=== PATIENT | female | born 1960 | race Caucasian/White ===

== ENCOUNTER → 2016-06-20 | Outpatient (CLI) | payer BC ==
[~2016-06-20] MED LIST: AMLO-110 PO; ATV5X PO; BSP/10 PO; CALCTAB7 PO; CEPH500C PO; CETITAB27 PO; CYAN500T PO; IMT50 PO; MELO15TA4 PO; MULT-506 PO; OXYC-57 PO; TRAM-10 PO; TRAZ-120 PO; VENL150C56 PO; VENL75CA73 PO
== END | disposition home or self-care (01) ==
LOC: C.PAPS 08:35
PROVIDERS: ATTEND Obstetrics & Gynecology
DX: Z01.411 Encounter for gynecological examination (general) (routine) with abnormal findings (principal); R87.616 Satisfactory cervical smear but lacking transformation zone

== ENCOUNTER 2016-10-23 20:33 | Emergency (ER) | payer BC ==
[~2016-10-23] VITALS: Ht 162.6 cm; Wt 65.8 kg
[~2016-10-23 20:33] MED LIST changes: -CEPH500C PO; -CYAN500T PO; -MELO15TA4 PO; -OXYC-57 PO; -TRAZ-120 PO; +TRAZ1TAB5 PO; -VENL75CA73 PO
[2016-10-23 20:38] VITALS: Ht 162.6 cm; Wt 65.8 kg
[2016-10-23] MEDS ORDERED: SODIUM CHLORIDE 0.9% 1000ML 1,000 ML IV STA (20:53)
--- NOTE | 2016-10-23 21:01 | EMERGENCY ROOM VISIT NOTE ---
History First contact with patient: 20:43 Chief Complaint: FLANK PAIN Stated Complaint: PAIN IN LEFT SIDE History of Present Illness The patient is a 56 year old female who presents to the Emergency Room with complaints of left flank pain. The patient had sudden onset of severe left flank pain around 5 PM. It was severe and associated with nausea. The patient states that the pain seemed to ease up. She proceeded to go to a restaurant. She states that before they even got their food the pain returned. The patient' s called an ambulance because she was having such severe pain. The patient was evaluated by EMS at their home but the transport ambulance would not be there for at least 15 minutes. He decided to bring her to the hospital. She has not had any fevers. She has not had any chest pain or trouble breathing. She does not have any loss of bowel or bladder control, saddle anesthesia, pain, numbness, tingling or weakness in the legs. She denies any history of kidney stone. She denies any dysuria, urgency, frequency or hematuria. The patient states she did take Azo when the pain first started she thought she could be developing a urinary tract infection. Review of Systems A 10 system review of systems was completed with positives and pertinent negatives listed in the HPI. Past Medical/Surgical History Medical Problems: (1) Anxiety (2) Depression (3) Migraine Family History Cancer Diabetes mellitus Heart disease Hypertension Social History Smoking Status: Never Smoker Alcohol Use: occasionally Marital Status: Housing Status: lives with family Current/Historical Medications Scheduled Amlodipine (Norvasc), 5 MG PO DAILY Calcium Carbonate-Vitamin D W/ (Caltrate 600 Plus), 1 TAB PO DAILY Cephalexin Monohydrate (Keflex), 500 MG PO QID Cetirizine/Pseudoephedrine (Zyrtec-D Er 5MG/120MG), 1 TAB PO Q12H Cyanocobalamin (Vitamin B-12), 500 MCG PO DAILY Meloxicam (Meloxicam), 15 MG PO DAILY Multivitamin (Multivitamin), 1 TAB PO DAILY Trazodone Hcl (Desyrel), 50 MG PO HS Venlafaxine Hcl (Effexor Extended Rel), 150 MG PO DAILY Venlafaxine Hcl (Venlafaxine Extended Rel), 75 MG PO DAILY Scheduled PRN Lorazepam (Lorazepam), 0.5 MG PO DAILY PRN for Anxiety Oxycodone/Acetaminophen 5MG/325MG (Percocet 5MG/325MG), 1-2 TABS PO Q6 PRN for Pain Sumatriptan Succinate (Sumatriptan Succinate), 50 MG PO UD PRN for Migraine Tramadol (Ultram), 50 MG PO UD PRN for Migraine Physical Exam Vital Signs Date Time Temp Pulse Resp B/P (MAP) Pulse Ox O2 Delivery O2 Flow Rate FiO2 10/23/16 21:56 86 20 153/90 100 Room Air 10/23/16 20:38 36.6 84 16 152/82 100 Room Air Physical Exam VITALS: Vitals are noted on the nurse's note and reviewed by myself. Vital signs stable. The patient is afebrile. GENERAL: This is 56-year-old female, in no acute distress, nondiaphoretic, well- developed well-nourished. SKIN: The skin was without rashes, erythema, edema, or bruising. There is no tenting of the skin. Capillary reflex less than 2 seconds. HEAD: Normocephalic atraumatic. EARS: The external ears are normal in appearance. EYES: Pupils equal round and reactive to light and accommodation. Conjunctivae without injection, sclerae without icterus. Extraocular movements intact. NOSE: Patent, turbinates without inflammation or discharge. MOUTH: Mucous membranes moist. Tonsils are not enlarged. Pharynx without erythema or exudate. Uvula midline. Airway patent. Tongue does not deviate. NECK: Supple without nuchal rigidity. No lymphadenopathy. No thyromegaly. Cervical spine is nontender. No JVD. HEART: Regular rate and rhythm without murmurs gallops or rubs. LUNGS: Clear to auscultation bilaterally without wheezes, rales or rhonchi. No retractions or accessory muscle use. ABDOMEN: Positive bowel sounds x 4. Soft, minimal left lower abdominal tenderness, without masses or organomegaly. There is no CVA tenderness. MUSCULOSKELETAL: No muscle atrophy, erythema, or edema noted. Full range of motion without joint tenderness in all extremities. Strength 5/5 throughout. NEURO: Patient was alert and oriented to person place and time. No focal neurological deficits. Medical Decision & Procedures ER Provider Diagnostic Interpretation: ABD/PELVIS WITHOUT FOR STONE CLINICAL HISTORY: 56 years-old Female presenting with left flank pain. TECHNIQUE: Multidetector CT of the abdomen and pelvis was performed without the use of intravenous contrast. IV contrast: None. A dose lowering technique was used consistent with the principles of ALARA (as low as reasonably achievable). COMPARISON: None. CT DOSE (mGy.cm): The estimated cumulative dose is 757.58 mGy.cm. FINDINGS: Access Tech topogram: Unremarkable. Lung bases: Minimal dependent opacities, likely atelectasis. Normal heart size. No pericardial or pleural effusion. Liver: Normal morphology. Normal density. Evaluation limited by exclusion of the right hepatic dome. Few subcentimeter hypodensities, incompletely characterized without intravenous contrast but possibly hepatic cysts or hamartomas. Biliary: No gross biliary ductal dilatation allowing for noncontrast technique. Normal gallbladder. Pancreas: Normal. Spleen: Normal. Adrenal glands: Normal. Kidneys and ureters: No renal calculi. No hydronephrosis. Minimal infiltration along the lateral aspect of the left proximal ureter (series 3 image 137). However, the ureters are nondilated. No urothelial thickening. No calculus visualized within the ureters. Gastrointestinal tract: Normal appendix. No bowel obstruction. Peritoneal cavity: Trace free fluid in the pelvis. Bladder: Normal. Pelvic organs: Uterus and ovaries normal. Dominant follicle in the right ovary, measuring 2.6 cm. Vasculature: Minimal atherosclerosis of the abdominal aorta, which is normal in caliber. Lymph nodes: No enlarged lymph nodes in the abdomen or pelvis. Abdominal wall: Normal. Musculoskeletal: Degenerative changes of the pubic symphysis. IMPRESSION: 1. Nonspecific periureteral stranding along the proximal left ureter. No visualized renal or ureteral calculus. No obstruction. 2. Apparent dominant follicle in the right ovary measuring 2.6 cm. This is most likely benign even in the early postmenopausal setting. If there is clinical concern, ultrasound could be obtained on a nonurgent basis. Laboratory Results 10/23/16 21:05 Red Blood Count 4.35, Mean Corpuscular Volume 90.1, Mean Corpuscular Hemoglobin 30.1, Mean Corpuscular Hemoglobin Concent 33.4, Mean Platelet Volume 8.9, Neutrophils (%) (Auto) 59.7, Lymphocytes (%) (Auto) 25.2, Monocytes (%) (Auto) 11.0, Eosinophils (%) (Auto) 3.4, Basophils (%) (Auto) 0.6, Neutrophils # (Auto ) 4.27, Lymphocytes # (Auto) 1.80, Monocytes # (Auto) 0.79, Eosinophils # (Auto ) 0.24, Basophils # (Auto) 0.04 10/23/16 21:05 Test 10/23/16 21:05 White Blood Count 7.15 K/uL (4.8-10.8) Red Blood Count 4.35 M/uL (4.2-5.4) Hemoglobin 13.1 g/dL (12.0-16.0) Hematocrit 39.2 % (37-47) Mean Corpuscular Volume 90.1 fL (80-100) Mean Corpuscular Hemoglobin 30.1 pg (25-34) Mean Corpuscular Hemoglobin Concent 33.4 g/dl (32-36) Platelet Count 266 K/uL (130-400) Mean Platelet Volume 8.9 fL (7.4-10.4) Neutrophils (%) (Auto) 59.7 % Lymphocytes (%) (Auto) 25.2 % Monocytes (%) (Auto) 11.0 % Eosinophils (%) (Auto) 3.4 % Basophils (%) (Auto) 0.6 % Neutrophils # (Auto) 4.27 K/uL (1.4-6.5) Lymphocytes # (Auto) 1.80 K/uL (1.2-3.4) Monocytes # (Auto) 0.79 K/uL (0.11-0.59) Eosinophils # (Auto) 0.24 K/uL (0-0.5) Basophils # (Auto) 0.04 K/uL (0-0.2) RDW Standard Deviation 41.2 fL (36.4-46.3) RDW Coefficient of Variation 12.5 % (11.5-14.5) Immature Granulocyte % (Auto) 0.1 % Immature Granulocyte # (Auto) 0.01 K/uL (0.00-0.02) Urine Color DK YELLOW Urine Appearance CLEAR (CLEAR) Urine pH 7.5 (4.5-7.5) Urine Specific [place] 1.011 (1.000-1.030) Urine Protein NEG (NEG) Urine Glucose (UA) NEG (NEG) Urine Ketones NEG (NEG) Urine Occult Blood 3+ (NEG) Urine Nitrite POS (NEG) Urine Bilirubin NEG (NEG) Urine Urobilinogen NEG (NEG) Urine Leukocyte Esterase NEG (NEG) Urine WBC (Auto) 0 /hpf (0-5) Urine RBC (Auto) 0-4 /hpf (0-4) Urine Hyaline Casts (Auto) 1-5 /lpf (0-5) Urine Epithelial Cells (Auto) 5-10 /lpf (0-5) Urine Bacteria (Auto) NEG (NEG) Anion Gap 6.0 mmol/L (3-11) Est Creatinine Clear Calc Drug Dose 60.6 ml/min Estimated GFR () 75.3 Estimated GFR (Non- 64.9 BUN/Creatinine Ratio 17.7 (10-20) Calcium Level 9.1 mg/dl (8.5-10.1) Total Bilirubin 0.4 mg/dl (0.2-1) Aspartate Amino Transf (AST/SGOT) 21 U/L (15-37) Alanine Aminotransferase (ALT/SGPT) 25 U/L (12-78) Alkaline Phosphatase 64 U/L (45-117) Total Creatine Kinase 135 U/L (26-192) Total Protein 7.3 gm/dl (6.4-8.2) Albumin 4.0 gm/dl (3.4-5.0) Globulin 3.3 gm/dl (2.5-4.0) Albumin/Globulin Ratio 1.2 (0.9-2) Lipase 213 U/L (73-393) Medications Administered Medications (Trade) Dose Ordered Sig/Lorena Route Start Time Stop Time Status Last Admin Dose Admin Sodium Chloride 1,000 ml @ 999 mls/hr Q1H1M STAT IV 10/23/16 20:53 10/23/16 21:53 DC 10/23/16 21:15 999 MLS/HR ED Course The patient was seen and examined. Previous visits were reviewed. The patient does not have a fever or leukocytosis. She is not anemic. She does not have any significant electrolyte abnormalities. Lipase is not elevated. Urinalysis reveals 3+ blood, positive nitrates and 5-10 epithelial cells. There is no elevation in the white blood cell count or red blood cell count. A culture will be sent. The patient was hydrated with normal saline. The patient presents to the emergency department with severe intermittent left flank pain that started suddenly approximately 5 hours ago. The patient has been completely pain free throughout her visit in the emergency department. She is nontoxic in appearance. CT scan of the abdomen and pelvis reveals some stranding around the left proximal ureter. This could potentially represent a urinary tract infection or possibly recently passed stone. There is also incidental note of right hepatic cyst versus hematoma and a dominant right ovarian follicle. She was advised that both of these findings. She should follow with her family doctor. The patient will be started on Keflex and given a prescription for Percocet. She should return to the emergency Department with any recurrence of pain that cannot be controlled at home, fevers or generalized worsening symptoms. The case was discussed with Dr. Mccarthy who agrees with the assessment and treatment plan. Medical Decision DIFFERENTIAL DIAGNOSIS: Hepatitis, cholecystitis, cholangitis, biliary colic, pancreatitis, pneumonia, subdiaphragmatic abscess, appendicitis, inguinal hernia , nephrolithiasis, inflammatory bowel disease, mesenteric adenitis, peptic ulcer disease, GERD, gastritis, pancreatitis, myocardial infarction, pericarditis, ruptured aortic aneurysm, appendicitis, gastroenteritis, bowel obstruction, splenic infarct, diverticulitis, mesenteric ischemia, metabolic, peritonitis, among others. [place] Drug Monitoring Program Search Results: patient reviewed within database, no issues identified Medication Reconcilliation Current Medication List: was personally reviewed by la Blood Pressure Screening Patient's blood pressure: Elevated blood pressure Blood pressure disposition: Elevated BP felt to be situational Impression Primary Impression: Left flank pain Additional Impression: Urinary tract infection Departure Information Dispostion Home / Self-Care Condition GOOD Prescriptions Oxycodone/Acetaminophen 5MG/325MG (PERCOCET 5MG/325MG) Tab 1-2 TABS PO Q6 Y for Pain, #24 TAB For Initial Treatment Prov: Muriel Drew PA-C 10/23/16 Cephalexin Monohydrate (Keflex) 500 Mg Cap 500 MG PO QID for 7 Days, #28 CAP Prov: Muriel rDew PA-C 10/23/16 Referrals No Doctor, Assigned (PCP) Tony Vega MD, Urology Patient Instructions Kidney Stones, My [facility] [employer] Additional Instructions Motrin 600 mg every 6-8 hours for moderate pain Percocet 1-2 tablet every 4-6 hours as needed for worse pain. No driving or alcohol use with Percocet and do not take with Tylenol. Keflex as prescribed, until finished to treat for potential urine infection Return with fevers, pain that cannot be controlled at home, worsening or changing symptoms Otherwise, contact her family doctor or urology to schedule a follow-up appointment for further evaluation and management Problem Qualifiers
[2016-10-23] MEDS ORDERED: VENL75CA73 PO (21:10)
[2016-10-23] MEDS ORDERED: MELO15TA4 PO (21:10)
[2016-10-23] MEDS ORDERED: CYAN500T PO (21:11)
[2016-10-23 21:17] LABS: BASO % 0.6 %; BASO ABS # 0.04 K/uL (0-0.2); COMPLETE YES; EOS % 3.4 %; HEMATOCRIT 39.2 % (37-47); IG% 0.1 %; LYMPH % 25.2 %; MEAN CELL VOLUME 90.1 fL (80-100); MEAN CORPUSCULAR HEMOGLOBIN 30.1 pg (25-34); MEAN CORPUSCULAR HGB CONC 33.4 g/dl (32-36); MEAN PLATELET VOLUME 8.9 fL (7.4-10.4); NEUT % 59.7 %; PLATELET COUNT 266 K/uL (130-400); RED BLOOD COUNT 4.35 M/uL (4.2-5.4); WHITE BLOOD COUNT 7.15 K/uL (4.8-10.8)
[2016-10-23 21:27] LABS: URINE APPEARANCE CLEAR (CLEAR); URINE BILIRUBIN NEG (NEG); URINE COLOR DK YELLOW; URINE NITRITE POS (NEG); URINE PH 7.5 (4.5-7.5); URINE SPECIFIC GRAVITY 1.011 (1.000-1.030); UROBILINOGEN NEG (NEG); ZZUR CULT IF INDIC CLEAN CATCH NO
[2016-10-23 21:36] LABS: BUN/CREATININE RATIO 17.7 (10-20); CALCIUM 9.1 mg/dl (8.5-10.1); CREATININE 0.98 mg/dl (0.60-1.20); POTASSIUM 4.1 mmol/L (3.5-5.1)
[2016-10-23 21:37] LABS: MANUAL MICROSCOPIC REQUIRED? NO; REVIEW REQ? NO
[2016-10-23 21:39] LABS: ALB/GLOB RATIO 1.2 (0.9-2)
--- NOTE | 2016-10-23 21:40 | DIAGNOSTIC IMAGING REPORT ---
ABD/PELVIS WITHOUT FOR STONE CLINICAL HISTORY: 56 years-old Female presenting with left flank pain. TECHNIQUE: Multidetector CT of the abdomen and pelvis was performed without the use of intravenous contrast. IV contrast: None. A dose lowering technique was used consistent with the principles of ALARA (as low as reasonably achievable). COMPARISON: None. CT DOSE (mGy.cm): The estimated cumulative dose is 757.58 mGy.cm. FINDINGS: Pharmacy Operations Coordinator topogram: Unremarkable. Lung bases: Minimal dependent opacities, likely atelectasis. Normal heart size. No pericardial or pleural effusion. Liver: Normal morphology. Normal density. Evaluation limited by exclusion of the right hepatic dome. Few subcentimeter hypodensities, incompletely characterized without intravenous contrast but possibly hepatic cysts or hamartomas. Biliary: No gross biliary ductal dilatation allowing for noncontrast technique. Normal gallbladder. Pancreas: Normal. Spleen: Normal. Adrenal glands: Normal. Kidneys and ureters: No renal calculi. No hydronephrosis. Minimal infiltration along the lateral aspect of the left proximal ureter (series 3 image 137). However, the ureters are nondilated. No urothelial thickening. No calculus visualized within the ureters. Gastrointestinal tract: Normal appendix. No bowel obstruction. Peritoneal cavity: Trace free fluid in the pelvis. Bladder: Normal. Pelvic organs: Uterus and ovaries normal. Dominant follicle in the right ovary, measuring 2.6 cm. Vasculature: Minimal atherosclerosis of the abdominal aorta, which is normal in caliber. Lymph nodes: No enlarged lymph nodes in the abdomen or pelvis. Abdominal wall: Normal. Musculoskeletal: Degenerative changes of the pubic symphysis. IMPRESSION: 1. Nonspecific periureteral stranding along the proximal left ureter. No visualized renal or ureteral calculus. No obstruction. 2. Apparent dominant follicle in the right ovary measuring 2.6 cm. This is most likely benign even in the early postmenopausal setting. If there is clinical concern, ultrasound could be obtained on a nonurgent basis. Electronically signed by: Sushil Leach M.D. 10/23/2016 9:39 PM Dictated Date/Time: 10/23/2016 9:31 PM
[2016-10-23] MEDS ORDERED: OXYC-57 PO (22:01)
[2016-10-23] MEDS ORDERED: CEPH500C PO (22:01)
[2016-10-23] MEDS ORDERED: PERCOCET HOME PACK PO ONE (22:15)
[2016-10-23] MEDS ORDERED: CEPHALEXIN 500MG HOME PACK 1 EA BTL PO ONE (22:15)
[2016-10-23 22:47] VITALS: BP 128/88; PULSE 86; TEMP 36.6; O2SAT 100
== END 2016-10-23 22:49 | disposition home or self-care (01) ==
LOC: C.EDB 20:34
DX: N39.0 Urinary tract infection, site not specified (principal); F41.9 Anxiety disorder, unspecified; F32.9 Major depressive disorder, single episode, unspecified; Z80.9 Family history of malignant neoplasm, unspecified; Z83.3 Family history of diabetes mellitus; Z82.49 Family history of ischemic heart disease and other diseases of the circulatory system; Z79.899 Other long term (current) drug therapy

== ENCOUNTER 2017-05-01 18:54 | Observation (INO) | payer BC ==
[~2017-05-01] VITALS: Ht 162.6 cm; Wt 60.3 kg
[~2017-05-01 18:54] MED LIST changes: -BSP/10 PO; +CYAN500T PO; +MELO15TA4 PO; +TRAZ-120 PO; -TRAZ1TAB5 PO; +VENL75CA73 PO
[2017-05-01] MEDS ORDERED: ASPIRIN 81 MG CHEW PO STA (19:21)
[2017-05-01] MEDS ORDERED: NITROGLYCERIN 0.4 MG SL PER TAB CHARGE SL PRN ×2 (19:30→21:15)
[2017-05-01 19:42] LABS: BASO % 0.7 %; BASO ABS # 0.04 K/uL (0-0.2); EOS % 3.7 %; EOS ABS # 0.21 K/uL (0-0.5); HEMATOCRIT 38.1 % (37-47); HEMOGLOBIN 13.1 g/dL (12.0-16.0); IG# 0.01 K/uL (0.00-0.02); LYMPH % 40.2 %; LYMPH ABS # 2.27 K/uL (1.2-3.4); MEAN CELL VOLUME 89.9 fL (80-100); MEAN CORPUSCULAR HEMOGLOBIN 30.9 pg (25-34); MEAN CORPUSCULAR HGB CONC 34.4 g/dl (32-36); MEAN PLATELET VOLUME 9.1 fL (7.4-10.4); MONO % 11.2 %; MONO ABS # 0.63 K/uL (0.11-0.59); NEUT ABS # 2.48 K/uL (1.4-6.5); PLATELET COUNT 251 K/uL (130-400); RED CELL DISTRIBUTION WIDTH CV 12.6 % (11.5-14.5); RED CELL DISTRIBUTION WIDTH SD 40.7 fL (36.4-46.3); WHITE BLOOD COUNT 5.64 K/uL (4.8-10.8)
--- NOTE | 2017-05-01 19:50 | DIAGNOSTIC IMAGING REPORT ---
CHEST ONE VIEW PORTABLE HISTORY: Atypical Chest Pain COMPARISON: Chest 07/17/2015. FINDINGS: The lungs are clear. Cardiac silhouette is normal in size. No pleural effusions. No pneumothorax. IMPRESSION: No acute process. Electronically signed by: Shaan Jha M.D. 05/01/2017 7:49 PM Dictated Date/Time: 05/01/2017 7:48 PM
[2017-05-01] MEDS ORDERED: MoRPHine SULFATE 4 MG/ML 1 ML CARP\\VIAL IV STA (19:57)
[2017-05-01] MEDS ORDERED: ONDANSETRON INJ 2 MG/ML 2 ML VIAL IV STA (19:57)
[2017-05-01 20:02] LABS: BLOOD UREA NITROGEN 22 mg/dl (7-18); CALCIUM 9.1 mg/dl (8.5-10.1); CARBON DIOXIDE 25 mmol/L (21-32); CREATININE 0.74 mg/dl (0.60-1.20); GLUCOSE 91 mg/dl (70-99); POTASSIUM 3.3 mmol/L (3.5-5.1); SODIUM 139 mmol/L (136-145)
[2017-05-01 20:07] LABS: CKMB 2.5 ng/ml (0.5-3.6)
[2017-05-01] MEDS ORDERED: IV FLUIDS COMPLETED PRN (21:15)
[2017-05-01] MEDS ORDERED: MoRPHine SULFATE 2 MG/ML CARP IV PRN (21:15)
[2017-05-01] MEDS ORDERED: POLYETHYLENE (MIRALAX) 17 GM PACK PO PRN (21:15)
[2017-05-01] MEDS ORDERED: ACETAMINOPHEN 325 MG TAB PO PRN (21:15)
[2017-05-01] MEDS ORDERED: ONDANSETRON INJ 2 MG/ML 2 ML VIAL IV PRN (21:15)
[2017-05-01] MEDS ORDERED: ZNTT/150 PO (21:16)
[2017-05-01] MEDS ORDERED: AMLO-114 PO (21:16)
[2017-05-01] MEDS ORDERED: BUSP5TAB59 PO (21:16)
[2017-05-01] MEDS ORDERED: CYAN1CAP3 PO (21:16)
[2017-05-01] MEDS ORDERED: VTMD1000 PO (21:16)
--- NOTE | 2017-05-01 21:28 | History and Physical ---
History & Physical Date & Time of Service: May 01, 2017 at 21:17 Chief Complaint: Burning In Chest, Elevated Bp, Headache Primary Care Physician: Donato Abraham M.D. 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 She reports this pain has been not triggered by anything in particular, for instance she will note it in the car while driving home from work. However , she did say the pain could get worse with exertion. Nitro was given in the ER and didn't help her much ith respect to pain but the morphine did help somewhat. ASA was also given. She has no known h/o heart disease and has a family history of her mother and multiple aunts needing a pacemaker but no known early heart disease. She has noted her BP being very elevated >200/100 in the last few weeks and has even gone up on her amlodipine dose from 5mg to 10mg without much improvement. She states that taking 1-2 tabs of her Ativan is really what will help her BP. ROS does reveal some new ice pick headaches that are not similar to her migraines in the past along with some facial flushing, episodes of diaphoresis and some intermittent lightheadedness. She doesn't attribute the symptoms with her pain and denies any SOB, abdominal pain , diarrhea, or other symptoms. She reports being diagnosed with HTN 2-3 years ago and has been well maintained on monotherapy up until a few weeks ago. She does report that her went through a heart attack recently and this was stressful for her. He is present and recovering well. Past Medical/Surgical History Medical Problems: (1) Anxiety Status: Chronic (2) Depression Status: Chronic (3) Migraine Status: Chronic Family History Cancer Diabetes mellitus Hypertension Social History Smoking Status: Never Smoker Smokeless Tobacco Use: No Alcohol Use: socially Drug Use: none Marital Status: Housing status: lives with significant other Occupational Status: employed Immunizations History of Influenza Vaccine: Unknown History of Tetanus Vaccine?: Yes Tetanus Immunization Date: Nov 05, 2016 History of Pneumococcal: Unknown History of Hepatitis B Vaccine: Unknown Multi-Drug Resistant Organisms History of MDRO: No Allergies Coded Allergies: Sulfa Drugs (Verified Allergy, Severe, HIVES, 05/01/17) Home Medications Scheduled Amlodipine (Norvasc), 10 MG PO DAILY Buspirone Hcl (Buspirone Hcl), 20 MG PO DAILY Cholecalciferol (Vitamin D3), 1,000 UNITS PO DAILY Cyanocobalamin (B-12), 1,000 MCG PO QD Meloxicam (Meloxicam), 15 MG PO DAILY Ranitidine (Zantac), 150 MG PO DAILY Trazodone Hcl (Desyrel), 50 MG PO HS Venlafaxine Hcl (Venlafaxine Extended Rel), 75 MG PO DAILY Scheduled PRN Lorazepam (Lorazepam), 0.5 MG PO TID PRN for Anxiety Sumatriptan Succinate (Sumatriptan Succinate), 50 MG PO UD PRN for Migraine Tramadol (Ultram), 50 MG PO UD PRN for Migraine Review of Systems At least ten systems were reviewed and negative except as indicated in HPI above. Physical Exam Vital Signs Date Time Temp Pulse Resp B/P (MAP) Pulse Ox O2 Delivery O2 Flow Rate FiO2 05/01/17 20:00 79 18 138/85 99 Room Air 05/01/17 19:45 127/87 05/01/17 19:42 148/90 05/01/17 19:05 36.5 87 18 147/89 99 Room Air General Appearance: WD/WN, no apparent distress Head: normocephalic, atraumatic Eyes: normal inspection, PERRL, sclerae normal ENT: normal ENT inspection, hearing grossly normal, pharynx normal, + pertinent finding (mucous membranes are moist) Neck: supple, no adenopathy, no JVD, trachea midline Respiratory/Chest: lungs clear, normal breath sounds, no respiratory distress, no accessory muscle use Cardiovascular: regular rate, rhythm, no edema, no gallop, no murmur, normal peripheral pulses Abdomen/GI: normal bowel sounds, non tender, soft Back: normal inspection Extremities/Musculoskelatal: normal inspection Neurologic/Psych: 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, no motor/sensory deficits, alert, normal mood/affect, oriented x 3 Skin: normal color, warm/dry Diagnostics Laboratory Results 05/01/17 19:30 Red Blood Count 4.24, Mean Corpuscular Volume 89.9, Mean Corpuscular Hemoglobin 30.9, Mean Corpuscular Hemoglobin Concent 34.4, Mean Platelet Volume 9.1, Neutrophils (%) (Auto) 44.0, Lymphocytes (%) (Auto) 40.2, Monocytes (%) (Auto) 11.2, Eosinophils (%) (Auto) 3.7, Basophils (%) (Auto) 0.7, Neutrophils # (Auto ) 2.48, Lymphocytes # (Auto) 2.27, Monocytes # (Auto) 0.63, Eosinophils # (Auto ) 0.21, Basophils # (Auto) 0.04 05/01/17 19:30 Test 05/01/17 19:30 White Blood Count 5.64 K/uL (4.8-10.8) Red Blood Count 4.24 M/uL (4.2-5.4) Hemoglobin 13.1 g/dL (12.0-16.0) Hematocrit 38.1 % (37-47) Mean Corpuscular Volume 89.9 fL (80-100) Mean Corpuscular Hemoglobin 30.9 pg (25-34) Mean Corpuscular Hemoglobin Concent 34.4 g/dl (32-36) Platelet Count 251 K/uL (130-400) Mean Platelet Volume 9.1 fL (7.4-10.4) Neutrophils (%) (Auto) 44.0 % Lymphocytes (%) (Auto) 40.2 % Monocytes (%) (Auto) 11.2 % Eosinophils (%) (Auto) 3.7 % Basophils (%) (Auto) 0.7 % Neutrophils # (Auto) 2.48 K/uL (1.4-6.5) Lymphocytes # (Auto) 2.27 K/uL (1.2-3.4) Monocytes # (Auto) 0.63 K/uL (0.11-0.59) Eosinophils # (Auto) 0.21 K/uL (0-0.5) Basophils # (Auto) 0.04 K/uL (0-0.2) RDW Standard Deviation 40.7 fL (36.4-46.3) RDW Coefficient of Variation 12.6 % (11.5-14.5) Immature Granulocyte % (Auto) 0.2 % Immature Granulocyte # (Auto) 0.01 K/uL (0.00-0.02) Anion Gap 8.0 mmol/L (3-11) Est Creatinine Clear Calc Drug Dose 73.3 ml/min Estimated GFR () 105.0 Estimated GFR (Non- 90.6 BUN/Creatinine Ratio 30.3 (10-20) Calcium Level 9.1 mg/dl (8.5-10.1) Total Creatine Kinase 130 U/L (26-192) Creatine Kinase MB 2.5 ng/ml (0.5-3.6) Creatine Kinase MB Ratio 1.9 (0-3.0) Troponin I < 0.015 ng/ml (0-0.045) Results Past 24 Hours Test 05/01/17 19:30 Range/Units White Blood Count 5.64 4.8-10.8 K/uL Red Blood Count 4.24 4.2-5.4 M/uL Hemoglobin 13.1 12.0-16.0 g/dL Hematocrit 38.1 37-47 % Mean Corpuscular Volume 89.9 80-100 fL Mean Corpuscular Hemoglobin 30.9 25-34 pg Mean Corpuscular Hemoglobin Concent 34.4 32-36 g/dl Platelet Count 251 130-400 K/uL Mean Platelet Volume 9.1 7.4-10.4 fL Neutrophils (%) (Auto) 44.0 % Lymphocytes (%) (Auto) 40.2 % Monocytes (%) (Auto) 11.2 % Eosinophils (%) (Auto) 3.7 % Basophils (%) (Auto) 0.7 % Neutrophils # (Auto) 2.48 1.4-6.5 K/uL Lymphocytes # (Auto) 2.27 1.2-3.4 K/uL Monocytes # (Auto) 0.63 0.11-0.59 K/uL Eosinophils # (Auto) 0.21 0-0.5 K/uL Basophils # (Auto) 0.04 0-0.2 K/uL RDW Standard Deviation 40.7 36.4-46.3 fL RDW Coefficient of Variation 12.6 11.5-14.5 % Immature Granulocyte % (Auto) 0.2 % Immature Granulocyte # (Auto) 0.01 0.00-0.02 K/uL Sodium Level 139 136-145 mmol/L Potassium Level 3.3 3.5-5.1 mmol/L Chloride Level 105 98-107 mmol/L Carbon Dioxide Level 25 21-32 mmol/L Anion Gap 8.0 3-11 mmol/L Blood Urea Nitrogen 22 7-18 mg/dl Creatinine 0.74 0.60-1.20 mg/dl Est Creatinine Clear Calc Drug Dose 73.3 ml/min Estimated GFR () 105.0 Estimated GFR (Non- 90.6 BUN/Creatinine Ratio 30.3 10-20 Random Glucose 91 70-99 mg/dl Calcium Level 9.1 8.5-10.1 mg/dl Total Creatine Kinase 130 26-192 U/L Creatine Kinase MB 2.5 0.5-3.6 ng/ml Creatine Kinase MB Ratio 1.9 0-3.0 Troponin I < 0.015 0-0.045 ng/ml Diagnostic Radiology CHEST ONE VIEW PORTABLE HISTORY: Atypical Chest Pain COMPARISON: Chest 07/17/2015. FINDINGS: The lungs are clear. Cardiac silhouette is normal in size. No pleural effusions. No pneumothorax. IMPRESSION: No acute process. Normal EKG Impression Assessment and Plan 57 yo F with HTN that has been more uncontrolled recently presents with persistent, intermittent chest pain. 1. Chest pain-intermittent and appears to be corresponding to her elevated BP. Rule out ACS with serial trop and telemetry monitoring. EKG on admission was nonischemic. Pain was resolved with morphine. ASA and Lipitor given. Defer to Cardiology for risk stratification for CAD. 2. HTN-elevated in the setting of hypokalemia and now flushing and episodes of diaphoresis. Currently BP is controlled after nitro in the ER, but will monitor closely. It is worth a quick workup for secondary causes of HTN to include JOSÉ, primary aldosteronism so will order renal artery duplex and PAC/ PRA ratio. These are reference labs and will need to be followed up by PCP as outpatient. With symptoms of flushing and episodes of diaphoresis would also consider 24 hour urine collection for pheo and carcinoid testing. This can be done as outpatient. Of note, she has been post-menopausal now for 5-6 years and these are not hot flashes. 3. Flushing and diaphoresis-workup as above. 4. Hypokalemia-replace, screen for primary aldosteronism above. 5. Migraines-controlled. Takes sumitriptan PRN but will hold in setting of poss ACS. DVT proph-Lovenox Full Code Dispo-telemetry w cardio consult in am. NPO p MN for poss stress test. DO [facility] Level [facility] Care Telemetry Resuscitation Status FULL RESUSCITATION VTE Prophylaxis VTE Risk Assessment Done? Y/N: Yes Risk Level: Moderate Given or contraindicated: Enoxaparin (Lovenox)SQ
[2017-05-01] MEDS ORDERED: LORAZEPAM 0.5 MG TAB PO PRN (21:30)
[2017-05-01] MEDS ORDERED: TRAZODONE HCL 50 MG TAB PO SCH (21:30)
[2017-05-01] MEDS ORDERED: TRAMADOL HCL 50 MG TAB PO PRN (21:30)
[2017-05-01] MEDS ORDERED: ATORVASTATIN 40 MG TAB PO STA (21:43)
[2017-05-01] MEDS ORDERED: POTASSIUM CHLORIDE 20 MEQ TABCR PO STA (21:43)
[2017-05-01 22:17] VITALS: BP 163/96; PULSE 84; TEMP 36.5; Ht 162.6 cm; Wt 60.3 kg
[2017-05-01 23:05] VITALS: BP 100/64; PULSE 84; TEMP 36.4; O2SAT 97
--- NOTE | 2017-05-02 00:18 | EMERGENCY ROOM VISIT NOTE ---
History Report prepared by Eron: Gene Jacobs Under the Supervision of: Dr. Frandy Mckinney D.O. First contact with patient: 19:09 Chief Complaint: HYPERTENSION Stated Complaint: BURNING IN CHEST, ELEVATED BP, HEADACHE History of Present Illness The patient is a 57 year old female who presents to the Emergency Room with complaints of off and on chest pain for the past two weeks, and she describes the pain as a burning. She states that she currently has the pain, and it started around 3 hours ago. She additionally states that her blood pressure has been high in the 200/100s. The patient notes that the chest pain is worsened with exertion, though it is not relieved with anything including resting, eating , and laying flat. She states that she has been having right arm burning and some right jaw pain. She has a history of hypertension, though she is not on medications, and she is currently a smoker. She denies any history of heart disease or aorta problems, though she has a family history of heart disease. Pt denies headache, change in vision, fevers, shortness of breath, nausea, vomiting , diarrhea, pain with urination, and melena. Source of History: patient Onset: two weeks ago Position: chest Quality: burning Timing: other (on and off) Modifying Factors (Worsening): exertion Associated Symptoms: No headache, No SOB Note: Associated symptoms: right arm pain, jaw pain, and hypertension Review of Systems See HPI for pertinent positives & negatives. A total of 10 systems reviewed and were otherwise negative. Past Medical & Surgical Medical Problems: (1) Anxiety (2) Depression (3) Migraine Family History Cancer Diabetes mellitus Heart disease Hypertension Social History Smoking Status: Never Smoker Alcohol Use: occasionally Marital Status: Housing Status: lives with family Current/Historical Medications Scheduled Amlodipine (Norvasc), 10 MG PO DAILY Buspirone Hcl (Buspirone Hcl), 20 MG PO DAILY Cholecalciferol (Vitamin D3), 1,000 UNITS PO DAILY Cyanocobalamin (B-12), 1,000 MCG PO QD Meloxicam (Meloxicam), 15 MG PO DAILY Ranitidine (Zantac), 150 MG PO DAILY Trazodone Hcl (Desyrel), 50 MG PO HS Venlafaxine Hcl (Venlafaxine Extended Rel), 75 MG PO DAILY Scheduled PRN Lorazepam (Lorazepam), 0.5 MG PO TID PRN for Anxiety Sumatriptan Succinate (Sumatriptan Succinate), 50 MG PO UD PRN for Migraine Tramadol (Ultram), 50 MG PO UD PRN for Migraine Allergies Coded Allergies: Sulfa Drugs (Verified Allergy, Severe, HIVES, 05/01/17) Physical Exam Vital Signs Date Time Temp Pulse Resp B/P (MAP) Pulse Ox O2 Delivery O2 Flow Rate FiO2 05/01/17 20:00 79 18 138/85 99 Room Air 05/01/17 19:45 127/87 05/01/17 19:42 148/90 05/01/17 19:05 36.5 87 18 147/89 99 Room Air Physical Exam GENERAL: Sitting up in bed, alert, well appearing, well nourished, no distress, non-toxic EYE EXAM: normal conjunctiva. OROPHARYNX: no exudate, no erythema, lips, buccal mucosa, and tongue normal and mucous membranes are moist NECK: supple, no nuchal rigidity, no adenopathy, non-tender LUNGS: Clear to auscultation. Normal chest wall mechanics HEART: no murmurs, S1 normal and S2 normal ABDOMEN: abdomen soft, non-tender, normo-active bowel sounds, no masses, no rebound or guarding. BACK: Back is symmetrical on inspection and there is no deformity, no midline tenderness, no CVA tenderness. SKIN: no rashes and no bruising UPPER EXTREMITIES: upper extremities are grossly normal. LOWER EXTREMITIES: Calves are equal bilaterally. No pitting edema. NEURO EXAM: Normal sensorium, cranial nerves II-XII grossly intact, normal speech, no gross weakness of arms, no gross weakness of legs. Medical Decision & Procedures ER Provider Diagnostic Interpretation: Radiology results as stated below per my review and the radiologist's interpretation: CHEST ONE VIEW PORTABLE HISTORY: Atypical Chest Pain COMPARISON: Chest 07/17/2015. FINDINGS: The lungs are clear. Cardiac silhouette is normal in size. No pleural effusions. No pneumothorax. IMPRESSION: No acute process. Electronically signed by: Shaan Jha M.D. 05/01/2017 7:49 PM Dictated Date/Time: 05/01/2017 7:48 PM Laboratory Results 05/01/17 19:30 Red Blood Count 4.24, Mean Corpuscular Volume 89.9, Mean Corpuscular Hemoglobin 30.9, Mean Corpuscular Hemoglobin Concent 34.4, Mean Platelet Volume 9.1, Neutrophils (%) (Auto) 44.0, Lymphocytes (%) (Auto) 40.2, Monocytes (%) (Auto) 11.2, Eosinophils (%) (Auto) 3.7, Basophils (%) (Auto) 0.7, Neutrophils # (Auto ) 2.48, Lymphocytes # (Auto) 2.27, Monocytes # (Auto) 0.63, Eosinophils # (Auto ) 0.21, Basophils # (Auto) 0.04 05/01/17 19:30 Test 05/01/17 19:30 White Blood Count 5.64 K/uL (4.8-10.8) Red Blood Count 4.24 M/uL (4.2-5.4) Hemoglobin 13.1 g/dL (12.0-16.0) Hematocrit 38.1 % (37-47) Mean Corpuscular Volume 89.9 fL (80-100) Mean Corpuscular Hemoglobin 30.9 pg (25-34) Mean Corpuscular Hemoglobin Concent 34.4 g/dl (32-36) Platelet Count 251 K/uL (130-400) Mean Platelet Volume 9.1 fL (7.4-10.4) Neutrophils (%) (Auto) 44.0 % Lymphocytes (%) (Auto) 40.2 % Monocytes (%) (Auto) 11.2 % Eosinophils (%) (Auto) 3.7 % Basophils (%) (Auto) 0.7 % Neutrophils # (Auto) 2.48 K/uL (1.4-6.5) Lymphocytes # (Auto) 2.27 K/uL (1.2-3.4) Monocytes # (Auto) 0.63 K/uL (0.11-0.59) Eosinophils # (Auto) 0.21 K/uL (0-0.5) Basophils # (Auto) 0.04 K/uL (0-0.2) RDW Standard Deviation 40.7 fL (36.4-46.3) RDW Coefficient of Variation 12.6 % (11.5-14.5) Immature Granulocyte % (Auto) 0.2 % Immature Granulocyte # (Auto) 0.01 K/uL (0.00-0.02) Prothrombin Time 10.0 SECONDS (9.0-12.0) Prothromb Time International Ratio 1.0 (0.9-1.1) Anion Gap 8.0 mmol/L (3-11) Est Creatinine Clear Calc Drug Dose 73.3 ml/min Estimated GFR () 105.0 Estimated GFR (Non- 90.6 BUN/Creatinine Ratio 30.3 (10-20) Calcium Level 9.1 mg/dl (8.5-10.1) Total Creatine Kinase 130 U/L (26-192) Creatine Kinase MB 2.5 ng/ml (0.5-3.6) Creatine Kinase MB Ratio 1.9 (0-3.0) Troponin I < 0.015 ng/ml (0-0.045) Laboratory results per my review. Medications Administered Medications (Trade) Dose Ordered Sig/Lorena Route Start Time Stop Time Status Last Admin Dose Admin Aspirin (Aspirin Chew) 324 mg NOW STAT PO 05/01/17 19:21 05/01/17 19:22 DC 05/01/17 19:41 324 MG Nitroglycerin (Nitrostat Tab) 0.4 mg Q5M PRN SL 05/01/17 19:30 05/01/17 21:48 DC 05/01/17 19:41 0.4 MG Morphine Sulfate (MoRPHine SULFATE INJ) 4 mg NOW STAT IV 05/01/17 19:57 05/01/17 19:59 DC 05/01/17 20:05 4 MG Ondansetron HCl (Zofran Inj) 4 mg NOW STAT IV 05/01/17 19:57 05/01/17 19:59 DC 05/01/17 20:05 4 MG ECG Indication: chest pain Rate (beats per minute): 79 Rhythm: sinus rhythm Findings: no ectopy, other (Normal axis and normal intervals) Change: The patient's EKG interpreted by me. ED Course ED COURSE: Vital signs were reviewed and showed situational hypertension The patients medical record was reviewed The above diagnostic studies were performed and reviewed. ED treatments and interventions as stated above. 1908: The patient was evaluated in room C4. A complete history and physical examination was performed. 1920: Aspirin 324mg PO 1929: Nitroglycerin 0.4mg SL 1956: Zofran 4mg IV, Morphine Sulfate 4mg IV 2009: Upon reevaluation, the patient is feeling a little better. I discussed my findings with the patient and she understands and agrees with the treatment plan. Based on the patients age, coexisting illnesses, exam and lab findings the decision to treat as an inpatient was made. The patient remained stable while under my care. The patient will be evaluated for further management. 2019: I reviewed the patient's case with Dr. Zack Summers. She will evaluate the patient for further management. Medical Decision Differential diagnoses includes but is not limited to acute coronary syndrome, myocardial infarction, pericarditis, pulmonary embolus, aortic dissection, pneumonia, pneumothorax, musculoskeletal, shingles, esophageal. Patient is a 57-year-old female who presents to ER for chest pain which she describes on left side her chest. Associated with the chest pain is right arm and jaw pain. History of hypertension and a family history of [place]. Chest pain has been coming going and she thinks it is worse with exertion. Patient was given nitroglycerin, aspirin and morphine. She had resolution of her symptoms. EKG unremarkable. CBC along with troponin were negative. Potassium was slightly low. Chest x-ray unremarkable. Patient was updated bedside. She is admitted to internal medicine for observation for cardiac rule out. Medication Reconcilliation Current Medication List: was personally reviewed by me Blood Pressure Screening Patient's blood pressure: Elevated blood pressure Blood pressure disposition: Elevated BP felt to be situational Consults Time Called: 2018 Consulting Physician: Dr. Zack Summers Returned Call: 2019 I reviewed the patient's case with Dr. Zack Summers. She will evaluate the patient for further management. Impression Primary Impression: Precordial chest pain Additional Impression: Hypokalemia Scribe Attestation The scribe's documentation has been prepared under my direction and personally reviewed by me in its entirety. I confirm that the note above accurately reflects all work, treatment, procedures, and medical decision making performed by me. Departure Information Dispostion Being Evaluated By Hospitalist Referrals Donato Abraham M.D. (PCP) Patient Instructions My [facility] Problem Qualifiers
[2017-05-02 02:17] LABS: CHOLESTEROL 178 mg/dl (0-200); LDL CHOLESTEROL CALCULATED 77 mg/dl
[2017-05-02 04:07] VITALS: BP 93/57; PULSE 75; TEMP 36.8; O2SAT 95
--- NOTE | 2017-05-02 06:47 | DIAGNOSTIC IMAGING REPORT ---
DUPLEX RENAL ARTERY CLINICAL HISTORY: intermittent BP >200/100, r/o JOSÉ, thx hypertension TECHNIQUE: Renal arterial Doppler COMPARISON STUDY: None FINDINGS: Velocities and waveforms are unremarkable bilaterally. Resistive indices are within normal limits. Velocity characteristics and waveform analysis are unremarkable. IMPRESSION: Normal study. No evidence for significant renal arterial stenotic process. The above report was generated using voice recognition software. It may contain grammatical, syntax or spelling errors. Electronically signed by: Lucas Telles M.D. 05/02/2017 6:46 AM Dictated Date/Time: 05/02/2017 6:41 AM
[2017-05-02 07:07] VITALS: BP 111/67; PULSE 69; TEMP 36.8; O2SAT 96
[2017-05-02 08:00] VITALS: O2SAT 96
[2017-05-02] MEDS ORDERED: POTASSIUM CHLORIDE 10 MEQ TABCR PO ONE (08:45)
[2017-05-02] MEDS ORDERED: AMLODIPINE BESYLATE 5 MG TAB PO SCH (09:00)
[2017-05-02] MEDS ORDERED: RANITIDINE HCL 150 MG TAB PO SCH (09:00)
[2017-05-02] MEDS ORDERED: ENOXAPARIN 40 MG/0.4 ML SYR SC SCH (09:00)
[2017-05-02] MEDS ORDERED: VENLAFAXINE HCL XR 75 MG CAPXR PO SCH (09:00)
[2017-05-02] MEDS ORDERED: CHOLECALCIFEROL 1000 INTER.UNIT TAB PO SCH (09:00)
[2017-05-02] MEDS ORDERED: ASPIRIN 81 MG ECTAB PO SCH (09:00)
[2017-05-02] MEDS ORDERED: CYANOCOBALAMIN 500 MCG TAB (VIT B-12) PO SCH (09:00)
--- NOTE | 2017-05-02 10:54 | CARDIOLOGY CONSULTATION ---
DATE OF CONSULTATION: 05/02/2017 REFERRING PHYSICIAN: Roma Ortiz MD. REASON FOR CONSULTATION: Chest pain, elevated blood pressure. HISTORY OF PRESENT ILLNESS: Ms. Martínez is a 57-year-old female with a history of high blood pressure presented to the Emergency Department with burning in her chest. The patient reports intermittent chest burning over the past 3 weeks. The burning typically occurs at rest. There is no particular triggers that she can recall. At times discomfort radiates to her jaw and right arm. The discomfort is not provoked by exertion; however, sometimes may worsen when she is active. 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 She is able to perform work duties without restrictions. Reports home blood pressure readings as high as 200/100. The patient typically will notice high chest discomfort and then assess her blood pressure readings. Since admission, her blood pressure has been labile; however, mostly controlled. Amlodipine recently titrated from 5 to 10 mg as an outpatient. States that taking Ativan typically improves her blood pressure readings. Denies personal history of coronary disease, congestive heart failure, rheumatic fever as a child, diabetes, peripheral vascular disease, or dyslipidemia. REVIEW OF SYSTEMS: The pertinent positives are noted above, comprehensive 10-system review is otherwise negative. PAST MEDICAL HISTORY: 1. Hypertension. 2. Anxiety disorder. 3. Depression. 4. Migraine headache. PAST SURGICAL HISTORY: Denied. SOCIAL HISTORY: Lifelong nonsmoker. She is and lives with her . 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 FAMILY HISTORY: Negative for premature CAD or sudden cardiac . Mother with pacemaker, aunts with pacemaker. ALLERGIES: SULFA. HOME MEDICATIONS: 1. Norvasc 10 mg daily. 2. BuSpar 20 mg daily. 3. Vitamin D3 1000 units daily. 4. B12 1000 mcg daily. 5. Meloxicam 15 mg daily. 6. Ranitidine 150 mg. 7. Trazodone 50 mg at bedtime. 8. Effexor 75 mg daily. 9. Lorazepam 0.5 mg t.i.d. as needed. 10. Sumatriptan 50 mg as needed for migraine. 11. Tramadol 50 mg as needed for migraine. ECG ON ADMISSION: Normal sinus rhythm, normal ECG. CHEST X-RAY: No acute process. LABORATORY DATA: Cardiac enzymes are negative x3 sets. Sodium 139, potassium 3.3, chloride 105, CO2 25, BUN is 22, creatinine is 0.74, total cholesterol 178, LDL 77, HDL 86. White blood cell count 5.64, hemoglobin is 13.1, platelet count is 251. INR is 1.0. TELEMETRY: Sinus rhythm, no dysrhythmias. PHYSICAL EXAMINATION: VITAL SIGNS: Temperature is 36.8 degrees centigrade, pulse 69 beats per minute and regular, respiratory rate is 18 breaths per minute, blood pressure 111/67. SaO2 is 96% on room air. GENERAL: NAD, awake, alert and oriented x3. HEENT: Mucous membranes are moist. No scleral icterus. Conjunctivae pink. NECK: Supple without JVD or HJR. No carotid bruit. HEART: Regular with a normal S1 and S2. There is no murmur, rub, or gallop appreciated. LUNGS: Clear without rales, rhonchi or wheeze. ABDOMEN: Soft, nontender. No rebound or guarding. Normal bowel sounds. EXTREMITIES: Warm and dry. There is no clubbing, cyanosis, or edema. NEUROLOGIC: Demonstrates no focal motor deficit. FINAL IMPRESSION: 1. A 57-year-old female presents with atypical chest burning occurring at rest. Initial evaluation for acute coronary syndrome is negative including negative cardiac enzymes, and normal ECG. The patient currently is pain free. 2. Labile hypertension associated with anxiety. 3. Normal fasting lipid panel. 4. Chronic nonsteroidal anti-inflammatory drug use. 5. History of peptic ulcer disease. PLAN AND RECOMMENDATIONS: I had a long discussion with the patient and her at bedside. Recommend exercise stress echocardiography for further evaluation of atypical chest discomfort. Continue to monitor blood pressure closely. A secondary workup including serum aldosterone level, pending at this time. The patient's renal arterial duplex within normal limits. I do not see a TSH on record which will be repeated today. Further recommendations pending result of exercise stress echocardiography. Thank you for allowing me to participate in the care of your patient.
[2017-05-02 11:07] VITALS: BP 120/75; PULSE 78; TEMP 36.7; O2SAT 98
[2017-05-02 12:00] VITALS: O2SAT 96
--- NOTE | 2017-05-02 13:12 | Progress Note ---
Internal Med Progress Note Date of Service: May 02, 2017. Provider Documentation: SUBJECTIVE: The patient was seen and examined Complains of headache -almost every day No other associated symptoms Denies any more Chest pain OBJECTIVE: Vital Signs-as noted below Exam: General-No distress at rest Eyes-normal ENT-normal Neck-supple Lungs-clear to ausucltate bilaterally Heart-Regular,no murmur Abdomen-Benign,no masses,bowel sound present Extremities-No edema Neuro-AAOx3 No focal neuro deficit Lab data as noted below. ASSESSMENT & PLAN: 57 yo F with HTN that has been more uncontrolled recently presents with persistent, intermittent chest pain. Chest pain-intermittent and appears to be corresponding to her elevated BP. Rule out ACS with serial trop and telemetry monitoring. EKG on admission was nonischemic. ASA and Lipitor given. Appreciate Cardiology input S/P negative Stress ECHO HTN-elevated in the setting of hypokalemia and now flushing and episodes of diaphoresis. Has been on Monotherapy Fluctuation of BP is thought to be due to Anxiety Flushing and diaphoresis Doubt secondary to Secondary HTN Anxiety /Depression Has been on Multiple Medications for this Still complains of a lots of Anxiety Has had increased dose of Effexor before with some help Will advise increasing Effexor to 150mg daily Hypokalemia-replace, screen for primary aldosteronism above. Migraines-controlled. Takes sumitriptan PRN but will hold in setting of poss ACS. Control with Exedrin as an OP DVT proph-Lovenox Full Code DISPOSITION Discharge home today Vital Signs: Date Time Temp Pulse Resp B/P (MAP) Pulse Ox O2 Delivery O2 Flow Rate FiO2 05/02/17 11:07 36.7 78 18 120/75 (90) 98 Room Air 05/02/17 08:00 96 Room Air 05/02/17 07:07 36.8 69 18 111/67 (82) 96 Room Air 05/02/17 04:07 36.8 75 18 93/57 (69) 95 Room Air 05/02/17 04:00 Room Air 05/02/17 00:00 Room Air 05/01/17 23:05 36.4 84 18 100/64 (76) 97 Room Air 05/01/17 22:17 36.5 84 18 163/96 Room Air 05/01/17 21:31 98 18 188/103 98 05/01/17 20:00 79 18 138/85 99 Room Air 05/01/17 19:45 127/87 05/01/17 19:42 148/90 05/01/17 19:05 36.5 87 18 147/89 99 Room Air Lab Results: Results Past 24 Hours Test 05/01/17 19:30 05/02/17 01:25 05/02/17 07:41 Range/Units White Blood Count 5.64 4.8-10.8 K/uL Red Blood Count 4.24 4.2-5.4 M/uL Hemoglobin 13.1 12.0-16.0 g/dL Hematocrit 38.1 37-47 % Mean Corpuscular Volume 89.9 80-100 fL Mean Corpuscular Hemoglobin 30.9 25-34 pg Mean Corpuscular Hemoglobin Concent 34.4 32-36 g/dl Platelet Count 251 130-400 K/uL Mean Platelet Volume 9.1 7.4-10.4 fL Neutrophils (%) (Auto) 44.0 % Lymphocytes (%) (Auto) 40.2 % Monocytes (%) (Auto) 11.2 % Eosinophils (%) (Auto) 3.7 % Basophils (%) (Auto) 0.7 % Neutrophils # (Auto) 2.48 1.4-6.5 K/uL Lymphocytes # (Auto) 2.27 1.2-3.4 K/uL Monocytes # (Auto) 0.63 0.11-0.59 K/uL Eosinophils # (Auto) 0.21 0-0.5 K/uL Basophils # (Auto) 0.04 0-0.2 K/uL RDW Standard Deviation 40.7 36.4-46.3 fL RDW Coefficient of Variation 12.6 11.5-14.5 % Immature Granulocyte % (Auto) 0.2 % Immature Granulocyte # (Auto) 0.01 0.00-0.02 K/uL Prothrombin Time 10.0 9.0-12.0 SECONDS Prothromb Time International Ratio 1.0 0.9-1.1 Sodium Level 139 136-145 mmol/L Potassium Level 3.3 3.5-5.1 mmol/L Chloride Level 105 98-107 mmol/L Carbon Dioxide Level 25 21-32 mmol/L Anion Gap 8.0 3-11 mmol/L Blood Urea Nitrogen 22 7-18 mg/dl Creatinine 0.74 0.60-1.20 mg/dl Est Creatinine Clear Calc Drug Dose 73.3 ml/min Estimated GFR () 105.0 Estimated GFR (Non- 90.6 BUN/Creatinine Ratio 30.3 10-20 Random Glucose 91 70-99 mg/dl Calcium Level 9.1 8.5-10.1 mg/dl Total Creatine Kinase 130 26-192 U/L Creatine Kinase MB 2.5 0.5-3.6 ng/ml Creatine Kinase MB Ratio 1.9 0-3.0 Troponin I < 0.015 < 0.015 < 0.015 0-0.045 ng/ml Triglycerides Level 76 0-150 mg/dl Cholesterol Level 178 0-200 mg/dl HDL Cholesterol 86 mg/dl LDL Cholesterol, Calculated 77 mg/dl VLDL Cholesterol, Calculated 15 mg/dl Cholesterol/HDL Ratio 2.1 Thyroid Stimulating Hormone (TSH) 2.430 0.300-4.500 uIu/ml
--- NOTE | 2017-05-02 13:37 | Discharge Instructions ---
Discharge Instructions Date of Service May 02, 2017. Admission Reason for Admission: Chest Pain Discharge Discharge Diagnosis / Problem: Chest pain-no ACS and Negative stress ECHO, Anxiety state Discharge Goals Goal(s): Prevent Disease Progression Activity Recommendations Activity Limitations: resume your previous activity . Instructions / Follow-Up Instructions / Follow-Up Dr Abraham on 05/07/17 at 10:45 AM Current Hospital Diet Patient's current hospital diet: AHA Diet (Heart Healthy) Discharge Diet Recommended Diet: AHA Diet (Heart Healthy) Pending Studies Studies pending at discharge: no Laboratory Results Lipid Panel Test 05/02/17 01:25 Range/Units Triglycerides Level 76 0-150 mg/dl Cholesterol Level 178 0-200 mg/dl HDL Cholesterol 86 mg/dl Cholesterol/HDL Ratio 2.1 LDL Cholesterol, Calculated 77 mg/dl Medical Emergencies . Who to Call and When: Medical Emergencies: If at any time you feel your situation is an emergency, please call 911 immediately. . Non-Emergent Contact Non-Emergency issues call your: Primary Care Provider . Past History Medical & Surgical History: (1) Chest pain, precordial (2) Hypokalemia (3) Hypertension (4) Dizziness (5) Anxiety (6) Depression (7) Migraine . "Provider Documentation" section prepared by Roma Ortiz. . VTE Core Measure Inpt VTE Proph given/why not?: Enoxaparin (Lovenox)SQ
--- NOTE | 2017-05-02 17:39 | Discharge Summary ---
Discharge Summary Date of Service May 02, 2017. Discharge Summary Admission Date: May 01, 2017 at 20:56 Discharge Date: May 02, 2017 Discharge Disposition: Home Principal Diagnosis: Chest pain-no ACS and Negative stress ECHO,Anxiety state Secondary Diagnoses/Problems: Please see H&P and Hospital progress note Consultations: Cardiology Medication Reconciliation Continued Medications: Amlodipine (Norvasc) 10 Mg Tab 10 MG PO DAILY, TAB Buspirone Hcl (Buspirone Hcl) 5 Mg Tab 20 MG PO DAILY for 30 Days, #120 TAB 2 Refills Cholecalciferol (Vitamin D3) 1,000 Inter.unit Tab 1000 UNITS PO DAILY Cyanocobalamin (B-12) 1,000 Mcg Cap 1000 MCG PO QD Lorazepam (Lorazepam) 0.5 Mg Tab 0.5 MG PO TID PRN for Anxiety Meloxicam (Meloxicam) 15 Mg Tab 15 MG PO DAILY, #30 ON HOLD, PT STATED "MD TOLD ME TO STOP WHILE B/P UP". 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 She reports this pain has been not triggered by anything in particular, for instance she will note it in the car while driving home from work. However , she did say the pain could get worse with exertion. Nitro was given in the ER and didn't help her much ith respect to pain but the morphine did help somewhat. ASA was also given. She has no known h/o heart disease and has a family history of her mother and multiple aunts needing a pacemaker but no known early heart disease. She has noted her BP being very elevated >200/100 in the last few weeks and has even gone up on her amlodipine dose from 5mg to 10mg without much improvement. She states that taking 1-2 tabs of her Ativan is really what will help her BP. ROS does reveal some new ice pick headaches that are not similar to her migraines in the past along with some facial flushing, episodes of diaphoresis and some intermittent lightheadedness. She doesn't attribute the symptoms with her pain and denies any SOB, abdominal pain , diarrhea, or other symptoms. She reports being diagnosed with HTN 2-3 years ago and has been well maintained on monotherapy up until a few weeks ago. She does report that her went through a heart attack recently and this was stressful for her. He is present and recovering well. Past Medical/Surgical History Medical Problems: (1) Anxiety Status: Chronic (2) Depression Status: Chronic (3) Migraine Status: Chronic Family History Cancer Diabetes mellitus Hypertension Social History Smoking Status: Never Smoker Smokeless Tobacco Use: No Alcohol Use: socially Drug Use: none Marital Status: Housing status: lives with significant other Occupational Status: employed Immunizations History of Influenza Vaccine: Unknown History of Tetanus Vaccine?: Yes Tetanus Immunization Date: Nov 05, 2016 History of Pneumococcal: Unknown History of Hepatitis B Vaccine: Unknown Multi-Drug Resistant Organisms History of MDRO: No Allergies Coded Allergies: Sulfa Drugs (Verified Allergy, Severe, HIVES, 05/01/17) Home Medications Scheduled Amlodipine (Norvasc), 10 MG PO DAILY Buspirone Hcl (Buspirone Hcl), 20 MG PO DAILY Cholecalciferol (Vitamin D3), 1,000 UNITS PO DAILY Cyanocobalamin (B-12), 1,000 MCG PO QD Meloxicam (Meloxicam), 15 MG PO DAILY Ranitidine (Zantac), 150 MG PO DAILY Trazodone Hcl (Desyrel), 50 MG PO HS Venlafaxine Hcl (Venlafaxine Extended Rel), 75 MG PO DAILY Scheduled PRN Lorazepam (Lorazepam), 0.5 MG PO TID PRN for Anxiety Sumatriptan Succinate (Sumatriptan Succinate), 50 MG PO UD PRN for Migraine Tramadol (Ultram), 50 MG PO UD PRN for Migraine Review of Systems At least ten systems were reviewed and negative except as indicated in HPI above. Physical Ex - H&P Physical Exam Vital Signs Date Time Temp Pulse Resp B/P (MAP) Pulse Ox O2 Delivery O2 Flow Rate FiO2 05/01/17 20:00 79 18 138/85 99 Room Air 05/01/17 19:45 127/87 05/01/17 19:42 148/90 05/01/17 19:05 36.5 87 18 147/89 99 Room Air General Appearance: WD/WN, no apparent distress Head: normocephalic, atraumatic Eyes: normal inspection, PERRL, sclerae normal ENT: normal ENT inspection, hearing grossly normal, pharynx normal, + pertinent finding (mucous membranes are moist) Neck: supple, no adenopathy, no JVD, trachea midline Respiratory/Chest: lungs clear, normal breath sounds, no respiratory distress, no accessory muscle use Cardiovascular: regular rate, rhythm, no edema, no gallop, no murmur, normal peripheral pulses Abdomen/GI: normal bowel sounds, non tender, soft Back: normal inspection Extremities/Musculoskelatal: normal inspection 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, no motor/sensory deficits, alert, normal mood/affect, oriented x 3 Skin: normal color, warm/dry Diagnostics - H&P Diagnostics Laboratory Results 05/01/17 19:30 Red Blood Count 4.24, Mean Corpuscular Volume 89.9, Mean Corpuscular Hemoglobin 30.9, Mean Corpuscular Hemoglobin Concent 34.4, Mean Platelet Volume 9.1, Neutrophils (%) (Auto) 44.0, Lymphocytes (%) (Auto) 40.2, Monocytes (%) (Auto) 11.2, Eosinophils (%) (Auto) 3.7, Basophils (%) (Auto) 0.7, Neutrophils # (Auto ) 2.48, Lymphocytes # (Auto) 2.27, Monocytes # (Auto) 0.63, Eosinophils # (Auto ) 0.21, Basophils # (Auto) 0.04 05/01/17 19:30 Test 05/01/17 19:30 White Blood Count 5.64 K/uL (4.8-10.8) Red Blood Count 4.24 M/uL (4.2-5.4) Hemoglobin 13.1 g/dL (12.0-16.0) Hematocrit 38.1 % (37-47) Mean Corpuscular Volume 89.9 fL (80-100) Mean Corpuscular Hemoglobin 30.9 pg (25-34) Mean Corpuscular Hemoglobin Concent 34.4 g/dl (32-36) Platelet Count 251 K/uL (130-400) Mean Platelet Volume 9.1 fL (7.4-10.4) Neutrophils (%) (Auto) 44.0 % Lymphocytes (%) (Auto) 40.2 % Monocytes (%) (Auto) 11.2 % Eosinophils (%) (Auto) 3.7 % Basophils (%) (Auto) 0.7 % Neutrophils # (Auto) 2.48 K/uL (1.4-6.5) Lymphocytes # (Auto) 2.27 K/uL (1.2-3.4) Monocytes # (Auto) 0.63 K/uL (0.11-0.59) Eosinophils # (Auto) 0.21 K/uL (0-0.5) Basophils # (Auto) 0.04 K/uL (0-0.2) RDW Standard Deviation 40.7 fL (36.4-46.3) RDW Coefficient of Variation 12.6 % (11.5-14.5) Immature Granulocyte % (Auto) 0.2 % Immature Granulocyte # (Auto) 0.01 K/uL (0.00-0.02) Anion Gap 8.0 mmol/L (3-11) Est Creatinine Clear Calc Drug Dose 73.3 ml/min Estimated GFR () 105.0 Estimated GFR (Non- 90.6 BUN/Creatinine Ratio 30.3 (10-20) Calcium Level 9.1 mg/dl (8.5-10.1) Total Creatine Kinase 130 U/L (26-192) Creatine Kinase MB 2.5 ng/ml (0.5-3.6) Creatine Kinase MB Ratio 1.9 (0-3.0) Troponin I < 0.015 ng/ml (0-0.045) Results Past 24 Hours Test 05/01/17 19:30 Range/Units White Blood Count 5.64 4.8-10.8 K/uL Red Blood Count 4.24 4.2-5.4 M/uL Hemoglobin 13.1 12.0-16.0 g/dL Hematocrit 38.1 37-47 % Mean Corpuscular Volume 89.9 80-100 fL Mean Corpuscular Hemoglobin 30.9 25-34 pg Mean Corpuscular Hemoglobin Concent 34.4 32-36 g/dl Platelet Count 251 130-400 K/uL Mean Platelet Volume 9.1 7.4-10.4 fL Neutrophils (%) (Auto) 44.0 % Lymphocytes (%) (Auto) 40.2 % Monocytes (%) (Auto) 11.2 % Eosinophils (%) (Auto) 3.7 % Basophils (%) (Auto) 0.7 % Neutrophils # (Auto) 2.48 1.4-6.5 K/uL Lymphocytes # (Auto) 2.27 1.2-3.4 K/uL Monocytes # (Auto) 0.63 0.11-0.59 K/uL Eosinophils # (Auto) 0.21 0-0.5 K/uL Basophils # (Auto) 0.04 0-0.2 K/uL RDW Standard Deviation 40.7 36.4-46.3 fL RDW Coefficient of Variation 12.6 11.5-14.5 % Immature Granulocyte % (Auto) 0.2 % Immature Granulocyte # (Auto) 0.01 0.00-0.02 K/uL Sodium Level 139 136-145 mmol/L Potassium Level 3.3 3.5-5.1 mmol/L Chloride Level 105 98-107 mmol/L Carbon Dioxide Level 25 21-32 mmol/L Anion Gap 8.0 3-11 mmol/L Blood Urea Nitrogen 22 7-18 mg/dl Creatinine 0.74 0.60-1.20 mg/dl Est Creatinine Clear Calc Drug Dose 73.3 ml/min Estimated GFR () 105.0 Estimated GFR (Non- 90.6 BUN/Creatinine Ratio 30.3 10-20 Random Glucose 91 70-99 mg/dl Calcium Level 9.1 8.5-10.1 mg/dl Total Creatine Kinase 130 26-192 U/L Creatine Kinase MB 2.5 0.5-3.6 ng/ml Creatine Kinase MB Ratio 1.9 0-3.0 Troponin I < 0.015 0-0.045 ng/ml Diagnostic Radiology CHEST ONE VIEW PORTABLE HISTORY: Atypical Chest Pain COMPARISON: Chest 07/17/2015. FINDINGS: The lungs are clear. Cardiac silhouette is normal in size. No pleural effusions. No pneumothorax. IMPRESSION: No acute process. Normal EKG Impression - H&P Impression Assessment and Plan 57 yo F with HTN that has been more uncontrolled recently presents with persistent, intermittent chest pain. 1. Chest pain-intermittent and appears to be corresponding to her elevated BP. Rule out ACS with serial trop and telemetry monitoring. EKG on admission was nonischemic. Pain was resolved with morphine. ASA and Lipitor given. Defer to Cardiology for risk stratification for CAD. 2. HTN-elevated in the setting of hypokalemia and now flushing and episodes of diaphoresis. Currently BP is controlled after nitro in the ER, but will monitor closely. It is worth a quick workup for secondary causes of HTN to include JOSÉ, primary aldosteronism so will order renal artery duplex and PAC/ PRA ratio. These are reference labs and will need to be followed up by PCP as outpatient. With symptoms of flushing and episodes of diaphoresis would also consider 24 hour urine collection for pheo and carcinoid testing. This can be done as outpatient. Of note, she has been post-menopausal now for 5-6 years and these are not hot flashes. 3. Flushing and diaphoresis-workup as above. 4. Hypokalemia-replace, screen for primary aldosteronism above. 5. Migraines-controlled. Takes sumitriptan PRN but will hold in setting of poss ACS. DVT proph-Lovenox Full Code Dispo-telemetry w cardio consult in am. NPO p MN for poss stress test. Ceci Dixon DO [facility] Hospitalist Level of Care Telemetry Resuscitation Status FULL RESUSCITATION VTE Prophylaxis VTE Risk Assessment Done? Y/N: Yes Risk Level: Moderate Given or contraindicated: Enoxaparin (Lovenox)SQ Physical Exam (per Admitting): General Appearance: WD/WN, no apparent distress Head: normocephalic, atraumatic Eyes: normal inspection, PERRL, sclerae normal ENT: normal ENT inspection, hearing grossly normal, pharynx normal, + pertinent finding (mucous membranes are moist) Neck: supple, no adenopathy, no JVD, trachea midline Respiratory/Chest: lungs clear, normal breath sounds, no respiratory distress, no accessory muscle use Cardiovascular: regular rate, rhythm, no edema, no gallop, no murmur, normal peripheral pulses Abdomen/GI: normal bowel sounds, non tender, soft Back: normal inspection Extremities/Musculoskelatal: normal inspection 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 Chest pain-intermittent and appears to be corresponding to her elevated BP. Rule out ACS with serial trop and telemetry monitoring. EKG on admission was nonischemic. ASA and Lipitor given. Appreciate Cardiology input S/P negative Stress ECHO HTN-elevated in the setting of hypokalemia and now flushing and episodes of diaphoresis. Has been on Monotherapy Fluctuation of BP is thought to be due to Anxiety Flushing and diaphoresis Doubt secondary to Secondary HTN Anxiety /Depression Has been on Multiple Medications for this Still complains of a lots of Anxiety Has had increased dose of Effexor before with some help Will advise increasing Effexor to 150mg daily Hypokalemia-replace, screen for primary aldosteronism above. Migraines-controlled. Takes sumitriptan PRN but will hold in setting of poss ACS. Control with Exedrin as an OP DVT proph-Lovenox Full Code DISPOSITION Discharge home today Total time spent on discharge = 35 minutes This includes examination of the patient, discharge planning, medication reconciliation, and communication with other providers. Discharge Instructions Date of Service May 02, 2017. Admission Reason for Admission: Chest Pain Discharge Discharge Diagnosis / Problem: Chest pain-no ACS and Negative stress ECHO, Anxiety state Discharge Goals Goal(s): Prevent Disease Progression Activity Recommendations Activity Limitations: resume your previous activity . Instructions / Follow-Up Instructions / Follow-Up Dr Abraham on 05/07/17 at 10:45 AM Current Hospital Diet Patient's current hospital diet: AHA Diet (Heart Healthy) Discharge Diet Recommended Diet: AHA Diet (Heart Healthy) Pending Studies Studies pending at discharge: no Laboratory Results Lipid Panel Test 05/02/17 01:25 Range/Units Triglycerides Level 76 0-150 mg/dl Cholesterol Level 178 0-200 mg/dl HDL Cholesterol 86 mg/dl Cholesterol/HDL Ratio 2.1 LDL Cholesterol, Calculated 77 mg/dl Medical Emergencies . Who to Call and When: Medical Emergencies: If at any time you feel your situation is an emergency, please call 911 immediately. . Non-Emergent Contact Non-Emergency issues call your: Primary Care Provider . Past History Medical & Surgical History: (1) Chest pain, precordial (2) Hypokalemia (3) Hypertension (4) Dizziness (5) Anxiety (6) Depression (7) Migraine . "Provider Documentation" section prepared by Roma Ortiz. . VTE Core Measure Inpt VTE Proph given/why not?: Enoxaparin (Lovenox)SQ <Electronically signed by Roma Ortiz M.D.> Signed: 05/02/17 9650 Additional Copies To Donato Abraham M.D.
--- NOTE | 2017-05-03 10:16 | EXERCISE STRESS ECHO ---
*NOTICE TO RECEIVING DEMOCRAT AGENCY This information is strictly Confidential and protected under [place] law. [place] law prohibits you from making any further disclosure of this information unless further disclosure is expressly permitted by the written consent of the person to whom it pertains or is authorized by law. A general authorization for the release of medical or other information is not sufficient for this purpose. Hospital accepts no responsibility if the information is made available to any other person, INCLUDING THE PATIENT. Interpretation Summary * Name: MARY ARREDONDO Study Date: 05/02/2017 10:56 AM BP: 124/69 mmHg * Patient Location: [facility]\S\N286\S\1 HR: 75 * : 1960 (M/d/yyyy) Gender: Female Height: 64 in * Age: 57 yrs Ethnicity: [place] Weight: 132 lb * Ordering Physician: Blake Carson * Referring Physician: Self, Referred * Performed By: Kamilla Knox RCS * * Reason For Study: Chest Pain * BSA: 1.6 m2 * The study was technically adequate. * STRESS STUDY: Normal exercise stress echocardiogram. No echocardiographic or ECG evidence of myocardial ischemia having achieved heart rate adequate for diagnostic purposes. * _ workload achieved. * -- Conclusions -- * Resting Study: * Ejection Fraction = 55-60%. * There is trace mitral regurgitation. Procedure Details * ECHOEX, CPT #[id number] * ECHO COLOR FLOW, CPT #[id number] * ECHO DOPPLER, CPT #[id number] * TST, CPT #[id number] Left Ventricle * The left ventricle is normal in size. * There is no thrombus. * There is normal left ventricular wall thickness. * The left ventricular ejection fraction is normal. * Ejection Fraction = 55-60%. * The left ventricular wall motion is normal. Right Ventricle * The right ventricle is normal in size and function. Atria * The left atrial size is normal. * Right atrial size is normal. * No ASD detected; PFO is not assessed. Mitral Valve * The mitral valve anatomy is normal. * There is no mitral valve stenosis. * There is trace mitral regurgitation. Tricuspid Valve * The tricuspid valve is not well visualized, but is grossly normal. * There is no tricuspid stenosis. * There is trace tricuspid regurgitation. Aortic Valve * The aortic valve is not well visualized. * No hemodynamically significant valvular aortic stenosis. * There is no significant aortic regurgitation. Pulmonic Valve * The pulmonic valve is not well visualized. Great Vessels * The aortic root is normal size. * Normal IVC diameter with normal inspiratory variation suggesting RA pressure of 3mmHg. Pericardium * Trivial anterior pericardial effusion without hemodynamic significance vs. anterior fat pad visualized in parasternal long axis view. Unchanged compared to previous study dated 03/04/14. * There is no pericardial effusion. Stress Parameters * The baseline ECG displays normal sinus rhythm. * Stress ECG: No ST changes. No arrhythmias. * The stress portion of this study was personally supervised by the undersigned interpreting physician. * Rest heart rate was '75' BPM. * Rest blood pressure was '124/69' * Maximum heart rate achieved was 164 bpm. * Maximum heart rate was 100 % of maximum age-predicted heart rate. * Maximum blood pressure was '169/81' * Total exercise time was '10:11' * Maximum exercise MET level achieved was '12' METS * Maximum treadmill speed was '4.2' miles per hour. * Maximum treadmill elevation was '16'% grade. * Exercise was terminated due to 'fatigue' * Normal blood pressure response to exercise. Left Ventricular Diastolic Function * Diastolic function was not assessed. MMode 2D Measurements and Calculations IVSd 0.94 cm IVSs 1.1 cm LVIDd 4.6 cm LVIDs 2.9 cm LVPWd 0.92 cm LVPWs 1.1 cm IVS/LVPW 1.0 FS 35.5 % EDV(Teich) 95.5 ml ESV(Teich) 33.3 ml EF(Teich) 65.1 % EDV(cubed) 95.0 ml ESV(cubed) 25.4 ml EF(cubed) 73.2 % % IVS thick 22.2 % % LVPW thick 22.8 % LV mass(C)d 142.0 grams LV mass(C)dI 86.6 grams/m\S\2 LV mass(C)s 97.8 grams LV mass(C)sI 59.6 grams/m\S\2 SV(Teich) 62.1 ml SI(Teich) 37.9 ml/m\S\2 SV(cubed) 69.5 ml SI(cubed) 42.4 ml/m\S\2 Ao root diam 3.1 cm Ao root area 7.7 cm\S\2 ACS 1.2 cm LA dimension 2.3 cm asc Aorta Diam 2.8 cm LA/Ao 0.74 EDV(MOD-sp4) 105.0 ml ESV(MOD-sp4) 51.0 ml EF(MOD-sp4) 51.4 % EDV(MOD-sp2) 114.0 ml ESV(MOD-sp2) 49.0 ml EF(MOD-sp2) 57.0 % SV(MOD-sp4) 54.0 ml SI(MOD-sp4) 32.9 ml/m\S\2 SV(MOD-sp2) 65.0 ml SI(MOD-sp2) 39.6 ml/m\S\2 Doppler Measurements and Calculations MV E max campbell 73.9 cm/sec MV A max campbell 66.9 cm/sec MV E/A 1.1 MV P1/2t max campbell 80.4 cm/sec MV P1/2t 68.1 msec MVA(P1/2t) 3.2 cm\S\2 MV dec slope 345.7 cm/sec\S\2 MV dec time 0.16 sec Ao V2 max 114.5 cm/sec Ao max PG 5.2 mmHg Ao max PG (full) 2.0 mmHg LV V1 max PG 3.3 mmHg LV V1 max 90.6 cm/sec PA V2 max 92.1 cm/sec PA max PG 3.4 mmHg
== END 2017-05-02 14:16 | disposition home or self-care (01) ==
LOC: C.EDB 18:57 → C.MED 20:56 → CANRESERV 21:07 → ENRESERV 21:07
PROVIDERS: ADMIT Hospitalist; ATTEND Internal Medicine
DX: R07.2 Precordial pain (principal); R09.89 Other specified symptoms and signs involving the circulatory and respiratory systems; F41.9 Anxiety disorder, unspecified; Z83.3 Family history of diabetes mellitus; Z82.49 Family history of ischemic heart disease and other diseases of the circulatory system; Z88.2 Allergy status to sulfonamides; I10 Essential (primary) hypertension; E87.6 Hypokalemia; F17.200 Nicotine dependence, unspecified, uncomplicated; Z79.1 Long term (current) use of non-steroidal anti-inflammatories (NSAID); R23.2 Flushing; R61 Generalized hyperhidrosis

== ENCOUNTER 2021-05-07 16:06 | Observation (INO) ==
--- NOTE | 2021-05-07 16:31 | Emergency Department Note ---
History of Present Illness General Chief complaint: Cardiac Assessment Stated complaint: CHEST PAIN/PRESSURE,SOB Time Seen by Provider: 05/07/21 16:16 Source: patient History of Present Illness Provider complaint: Chest pain Onset (ago): hour(s) Location: chest Radiation: neck (Only when she takes a deep breath) Pain Consistency: + intermittent Maximum Pain Intensity: 6 Quality: + other (Unable to describe) Relieved By: + medication (Better for about 10 minutes taking her 's nitroglycerin) Associated symptoms: + chest pain, + cough and + shortness of breath (Only because she cannot take a deep breath); no diaphoresis, no fever/chills or no nausea/vomiting This is a 61-year-old female who presents with chest pain starting approximately 1030 this morning. She was not doing anything in particular. She cannot describe the pain. She states it sits in the middle of her chest without radiation. She did had a little aching in her arm on the right side but does not know if the 2 are related. She states that it is worse when she takes a deep breath and when she takes a deep breath it goes into her anterior neck. She also notes that it got worse when she was squatting on the floor at 1 point. She denies any diaphoresis or nausea. She took one of her husbands nitroglycerin and felt better for about 10 minutes. The pain then came back. She states is been intermittent throughout the day. She has had no leg swelling or pain. She does have a history of COVID-19 infection in February. She has been coughing since then. She did recently go to her doctor who placed her on an antibiotic for the cough and sinus symptoms. She denies any fever, abdominal pain, vomiting, diarrhea or urinary symptoms. She denies any cardiac history but states that her mother and her mother sisters have heart problems. She is not sure exactly what type of heart problems but someone did require pacemaker at some time. Home Medications Medication Instructions Recorded Confirmed Type Mag/Calcium/Zinc 1 tab PO DAILY 05/07/21 05/07/21 History amlodipine 10 mg tablet 10 mg PO DAILY 05/07/21 05/07/21 History buspirone 10 mg tablet 10 mg PO TID 05/07/21 05/07/21 History cholecalciferol (vitamin D3) 25 50 mcg PO DAILY 05/07/21 05/07/21 History mcg (1,000 unit) tablet (Vitamin D3) famotidine 10 mg tablet (Pepcid AC) 10 mg PO DAILY PRN 05/07/21 05/07/21 History lorazepam 0.5 mg tablet 0.5 mg PO TID PRN 05/07/21 05/07/21 History meloxicam 15 mg tablet 15 mg PO QAM 05/07/21 05/07/21 History multivitamin 1 tab PO DAILY 05/07/21 05/07/21 History phenylephrine 5 1 cap PO BID PRN 05/07/21 05/07/21 History mg-dextromethorphan 10 mg-acetaminophen 325 mg capsule rizatriptan 5 mg tablet 5 mg PO DIRECTED PRN 05/07/21 05/07/21 History tramadol 50 mg tablet 50 mg PO Q6 PRN 05/07/21 05/07/21 History trazodone 50 mg tablet 50 mg PO HS 05/07/21 05/07/21 History venlafaxine 150 mg 150 mg PO DAILY 05/07/21 05/07/21 History capsule,extended release 24 hr vitamin B complex 1 tab PO DAILY 05/07/21 05/07/21 History Allergies Allergy/AdvReac Type Severity Reaction Status Date / Time Sulfa (Sulfonamide Allergy Severe HIVES Verified 05/07/21 17:09 Antibiotics) Past Med/Surg History Medical History Anxiety Depression Hypertension Family History (Updated 05/07/21 @ 16:29 by Blake Dee MD) Mother Coronary heart disease Aunt Coronary heart disease Social History Smoking Status: Never smoker Feels Safe at Home: Yes Review of Systems See HPI for pertinent positives & negatives. and A total of 10 systems reviewed and were otherwise negative Physical Exam Vital Signs Vital Signs - 24 hr 05/07/21 16:08 05/07/21 16:35 05/07/21 16:36 Temperature 36.4 C L Temperature Source Temporal Artery Scan Pulse Rate 103 H 66 Pulse Rate [Left Radial] Pulse Rhythm Regular Pulse Rhythm [Left Radial] Pulse Strength [Left Radial] Respiratory Rate 18 14 Respiratory Effort / Characteristics Respiratory Depth Blood Pressure 161/91 H Blood Pressure Mean 114 Pulse Oximetry 100 98 Oxygen Delivery Method Room Air Room Air Sepsis Recent Fever Within 48 Hours No Sepsis New/Unexplained Change in Mental Status No Sepsis Action Taken by Nursing No Action Required 05/07/21 17:00 Temperature Temperature Source Pulse Rate Pulse Rate [Left Radial] 88 Pulse Rhythm Pulse Rhythm [Left Radial] Regular Pulse Strength [Left Radial] Normal Respiratory Rate 14 Respiratory Effort / Characteristics Non-Labored Respiratory Depth Normal Blood Pressure Blood Pressure Mean Pulse Oximetry 99 Oxygen Delivery Method Room Air Sepsis Recent Fever Within 48 Hours Sepsis New/Unexplained Change in Mental Status Sepsis Action Taken by Nursing Constitutional: Vital signs reviewed. Eyes: Pupils are equal round reactive to light. Conjunctiva are noninjected. ENT: Pharynx is clear without erythema or exudate. Mucous membranes are moist. Neck supple without meningeal signs. Respiratory: Clear to auscultation bilaterally. Breath sounds are equal bilaterally. Cardiovascular: Regular rate and rhythm. No rubs or gallops. GI: Soft, nondistended and nontender. Bowel sounds are present. Musculoskeletal: No peripheral edema. No lower extremity tenderness. Mild tenderness over the mid sternum. Integumentary: No cyanosis. or jaundice. Neurological: The patient is awake and alert. No focal deficits. Psychiatric: Normal affect. Not anxious appearing. Course Administered Medications Discontinued Medications Nitroglycerin (Nitroglycerin 2% Ointment 30gm Tube) 1 inch EXT NOW ONE Stop: 05/07/21 16:55 Last Admin: 05/07/21 16:59 Dose: 1 inch Documented by: [id number] Medical Decision Making Differential Diagnosis Unstable angina, NM, PE, pleurisy, GERD Medical Records Attestation: I reviewed the patient's medical records. I did perform a limited focused review of portions of the patient's old chart on the electronic medical record. The patient has had no recent pertinent visits to this hospital. Home Medications Current Medication List: was personally reviewed by me Laboratory Data Attestation: I reviewed the patient's lab results. Result diagrams: 05/07/21 16:29 05/07/21 16:29 Lab Results 05/07/21 05/07/21 05/07/21 Range/Units 16:29 16:29 16:29 WBC 8.82 (4.8-10.8) K/uL RBC 4.43 (4.2-5.4) M/uL Hgb 13.9 (12.0-16.0) g/dL Hct 42.2 (37-47) % MCV 95.3 (80-100) fL MCH 31.4 (25-34) pg MCHC 32.9 (32-36) g/dL RDW Std Deviation 43.9 (36.4-46.3) fL RDW Coeff of Lisa 12.6 (11.5-14.5) % Plt Count 329 (130-400) K/uL MPV 9.5 (7.4-10.4) fL Immature Gran % (Auto) 0.1 % Neut % (Auto) 57.7 % Lymph % (Auto) 22.7 % [place] % (Auto) 16.3 % Eos % (Auto) 2.9 % Baso % (Auto) 0.3 % Neut # (Auto) 5.08 (1.4-6.5) K/uL Lymph # (Auto) 2.00 (1.2-3.4) K/uL [place] # (Auto) 1.44 H (0.11-0.59) K/uL Eos # (Auto) 0.26 (0-0.5) K/uL Baso # (Auto) 0.03 (0-0.2) K/uL Immature Gran # (Auto) 0.01 (0.00-0.02) K/uL PT 10.1 (9.0-12.0) Seconds INR 1.0 (0.9-1.1) APTT 25.4 (21.0-31.0) Seconds PTT Ratio 1.0 D-Dimer < 190 (0-500) ug/L FEU Sodium 139 (136-145) mmol/L Potassium 3.8 (3.5-5.1) mmol/L Chloride 103 (98-107) mmol/L Carbon Dioxide 29 (21-32) mmol/L Anion Gap 7 (3-11) BUN 25 H (6-23) mg/dl Creatinine 0.89 (0.6-1.2) mg/dl Est Cr Clr Drug Dosing 63.5 ml/min Est GFR ( Amer) 81.6 ml/min Est GFR (Non-Af Amer) 70.4 ml/min BUN/Creatinine Ratio 28.1 H (10-20) Glucose 72 (70-99(Fasting)) mg/dl Calcium 9.3 (8.5-10.1) mg/dl Total Bilirubin 0.4 (0.2-1.0) mg/dl AST 18 (13-39) U/L ALT 18 (7-52) U/L Alkaline Phosphatase 75 (34-104) U/L Troponin I < 0.03 (0-0.04) ng/ml Total Protein 6.8 (6.0-8.3) gm/dl Albumin 4.3 (3.4-5.0) gm/dl Globulin 2.5 (2.5-4.0) gm/dl Albumin/Globulin Ratio 1.7 (0.9-2) Lipase 32 (11-82) U/L Imaging Data Radiologist's Impression: Chest X-Ray 05/07/21 16:24 XR chest 1V portable CLINICAL HISTORY: Atypical chest pain TECHNIQUE: Single frontal radiograph of the chest was obtained. Comparison: Comparison is made to chest one view 05/01/2017 FINDINGS: No lines and tubes are seen. The cardiomediastinal silhouette is normal. The lungs are clear. No evidence of pleural effusion or pneumothorax. IMPRESSION: No acute chest disease. ACT 112: Negative or not required by law. Electronically signed by: Navid Rivas M.D. 05/07/2021 5:02 PM ECG Data Attestation: I personally reviewed and interpreted this ECG as follows: Indication: + chest pain Rate (beats per minute): 99 Rhythm: + normal sinus ECG Duncan: + Normal ECG ST segments: no ST elevation ECG Findings: no PVCs MDM Narrative I did evaluate the patient as noted above. The patient is presenting with chest pain intermittently since 1030 this morning. She does have a history of hypertension as well as a family history of heart disease. IV access was e stablished. I did place an order for continuous cardiac monitoring. The monitor showed normal sinus rhythm at a rate of 88 bpm. I did order and personally review the patient's 12-lead EKG as described above. She has no signs of STEMI or acute ischemia. I did order and personally reviewed the im ages of the patient's chest x-ray as described above. She has no evidence of infiltrate or pneumonia. I did order and review the patient's blood work as noted in the electronic medical record. CBC is unremarkable without leukocytosis or anemia. D-dimer is negative. Electrolytes are unremarkable. LFTs and lipase are unremarkable. Troponin is negative. I did discuss the test results with the patient and her . She was treated with aspirin as well as nitroglycerin paste. Her chest pain did improve with the nitroglycerin. I did recommend hospitalization for repeat cardiac enzymes and potential stress testing tomorrow if available. I did discuss the case with the hospitalist and porter sample case. Impression & Plan Acute chest pain Discharge Plan Visit Data Chief Complaint: Cardiac Assessment Stated Complaint: CHEST PAIN/PRESSURE,SOB ED Provider: Blake Dee Discharge Problem: Acute chest pain Patient Disposition: Being Evaluated by Hospitalist Forms Stand Alone Forms: My [facility] Prescriptions Prescriptions: No Action trazodone 50 mg tablet 50 mg PO HS RF: 0 meloxicam 15 mg tablet 15 mg PO QAM RF: 0 venlafaxine 150 mg capsule,extended release 24hr 150 mg PO DAILY RF: 0 tramadol 50 mg tablet 50 mg PO Q6 PRN (Reason: Severe Pain (Scale Score 7-10)) RF: 0 lorazepam 0.5 mg tablet 0.5 mg PO TID PRN (Reason: Anxiety) RF: 0 amlodipine 10 mg tablet 10 mg PO DAILY RF: 0 buspirone 10 mg tablet 10 mg PO TID RF: 0 rizatriptan 5 mg tablet 5 mg PO DIRECTED PRN (Reason: Migraine Headache) RF: 0 multivitamin Tablet 1 tab PO DAILY RF: 0 famotidine [Pepcid AC] 10 mg Tablet 10 mg PO DAILY PRN (Reason: Acid Reflux) RF: 0 vitamin B complex Tablet 1 tab PO DAILY RF: 0 Mucinex Fast-MaxSev Cold-Sinus 5-10-325 mg Capsule 1 cap PO BID PRN (Reason: Congestion) RF: 0 cholecalciferol (vitamin D3) [Vitamin D3] 25 mcg (1,000 unit) Tablet 50 mcg PO DAILY RF: 0 Mag/Calcium/Zinc 1 tab PO DAILY RF: 0 Referrals Referrals: Senait Bunch MD, FACOG [Physician] -
[2021-05-07 16:40] LABS: Basophils # (auto) 0.03 K/uL (0-0.2); Basophils % (auto) 0.3 %; Eosinophils # (auto) 0.26 K/uL (0-0.5); Eosinophils % (auto) 2.9 %; Hematocrit (blood only) 42.2 % (37-47); Hemoglobin 13.9 g/dL (12.0-16.0); Immature Granulocytes # (auto) 0.01 K/uL (0.00-0.02); Immature Granulocytes % (auto) 0.1 %; Lymphocytes % (auto) 22.7 %; Mean Corpuscular Hemoglobin 31.4 pg (25-34); Mean Corpuscular Hgb Conc 32.9 g/dL (32-36); Mean Corpuscular Volume 95.3 fL (80-100); Mean Platelet Volume 9.5 fL (7.4-10.4); Monocytes # (auto) 1.44 K/uL (0.11-0.59); Monocytes % (auto) 16.3 %; Neutrophils # (auto) 5.08 K/uL (1.4-6.5); Neutrophils % (auto) 57.7 %; Platelet Count 329 K/uL (130-400); RDW Coefficient of Variation 12.6 % (11.5-14.5); RDW Standard Deviation 43.9 fL (36.4-46.3); Red Blood Count 4.43 M/uL (4.2-5.4); White Blood Count 8.82 K/uL (4.8-10.8)
[2021-05-07 16:52] LABS: D Dimer < 190 ug/L FEU (0-500); Partial Thromboplastin Time 25.4 Seconds (21.0-31.0); Prothrombin Time 10.1 Seconds (9.0-12.0)
[2021-05-07] MEDS ORDERED: NITROGLYCERIN 2% OINTMENT 30GM TUBE EXT ONE (16:54)
[2021-05-07 16:58] LABS: Alanine Aminotransferase 18 U/L (7-52); Albumin Globulin Ratio 1.7 (0.9-2); Albumin Level 4.3 gm/dl (3.4-5.0); Alkaline Phosphatase 75 U/L (34-104); Anion Gap 7 (3-11); Aspartate Aminotransferase 18 U/L (13-39); BUN Creatinine Ratio 28.1 (10-20); Bilirubin,Total 0.4 mg/dl (0.2-1.0); Blood Urea Nitrogen 25 mg/dl (6-23); Calcium 9.3 mg/dl (8.5-10.1); Carbon Dioxide 29 mmol/L (21-32); Chloride 103 mmol/L (98-107); Creatinine Clr Calc Pharmacy 63.5 ml/min; Est GFR (African American) 81.6 ml/min; Est GFR (Non-African American) 70.4 ml/min; Globulin 2.5 gm/dl (2.5-4.0); Glucose 72 mg/dl (70-99(Fasting)); Lipase 32 U/L (11-82); Potassium 3.8 mmol/L (3.5-5.1); Sodium 139 mmol/L (136-145); Total Protein 6.8 gm/dl (6.0-8.3)
[2021-05-07 17:00] LABS: Troponin I < 0.03 ng/ml (0-0.04)
--- NOTE | 2021-05-07 17:03 | XRay Report ---
XR chest 1V portable CLINICAL HISTORY: Atypical chest pain TECHNIQUE: Single frontal radiograph of the chest was obtained. Comparison: Comparison is made to chest one view 05/01/2017 FINDINGS: No lines and tubes are seen. The cardiomediastinal silhouette is normal. The lungs are clear. No evid ence of pleural effusion or pneumothorax. IMPRESSION: No acute chest disease. ACT 112: Negative or not required by law. Electronically signed by: Navid Rivas M.D. 05/07/2021 5:02 PM
[2021-05-07] MEDS ORDERED: ASPIRIN 81 MG CHEW PO STA (17:32)
[2021-05-07] MEDS ORDERED: ALUMINUM/MAGNESIUM SUSP 30 ML UDC PO STA (18:15)
[2021-05-07] MEDS ORDERED: FAMOTIDINE 20MG IV PUSH 20 MG/5 ML SYR IV STA (18:15)
--- NOTE | 2021-05-07 18:19 | History & Physical Report ---
Date of Service May 07, 2021 Assessment & Plan (1) Acute chest pain: (2) Hypertension: Plan: This is a 61-year-old female who has significant past medical history of HTN, history of migraine, depression with anxiety, history of COVID-19 on 03/14 who presents to ED secondary to chest pain that started approximately 10:30 AM. Initial troponin unremarkable, which is reassuring given it was 6 hours after onset of chest pain. EKG without ST or T wave change. Chest pain does not appear reproducible so less likely MSK. Given age and history of hypertension feel ACS work-up appropriate. Patient describes it as a substernal burning sensation and admits to taking Pepcid occasionally. 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 Continue amlodipine for blood pressure management, BP elevated in ED but may be secondary to anxiety as patient appears anxious, will monitor give Pepcid IV x 1 now and maalox pt has nitropaste in place w/o much improvement a1c, fasting lipid panel in am. Depression with anxiety pt appears anxious states she has alot of stress at work Continue as needed lorazepam, BuSpar, Effexor and trazodone Alcohol use Patient drinks 3 glasses of wine nightly Monitor closely for withdrawal History of COVID-19 02/2021 Continues to complain of fatigue History of migraine Triptan as needed DVT prophylaxis: Lovenox Dispo: Med telemetry, ACS rule out, likely discharge tomorrow Full code PCP: Leigh Patient was seen and examined in collaboration with Dr. Dixon, please see adden dum The chart was completed utilizing [employer] Speech voice recognition software. Grammatical errors, random word insertions, pronoun errors, and incomplete sentences are an occasional consequence of this system due to software limitations, ambient noise, and hardware issues. Any formal questions or concerns about the content, text, or information contained within the body of this dictation should be directly addressed to the provider for clarification. History of Present Illness Chief Complaint: Chest pain that started at 10:30a.m. Primary Care Provider: Donato Abraham MD This is a 61-year-old female who has significant past medical history of HTN, history of migraine, depression with anxiety, history of COVID-19 on 03/14 who presents to ED secondary to chest pain that started approximately 10:30 AM. She states she slept in today due to not having to go into work till later. When she woke at approximately 10:30 AM she notes that she had a burning sensation and pain in her substernal chest region. Pain initially was rated a 7 out of 10, radiated to her right shoulder down the right arm describing as an ache, was made worse with deep inspiration, "feels like I cannot get a deep breath," and made worse with squatting down. She was not able to reproduce the pain and was not made worse with movement. No recent injury or trauma. She denies prior history of CAD. She has never experienced in the past. She tried one of her 's nitro which alleviated the symptoms for approximately 10 minutes and then it returned. She denies prior history of indigestion or heartburn but states she takes famotidine as needed. She is unable to tell me what her last meal was last evening, but knows she ate pizza 2 nights ago. She denied any diaphoresis, nausea or shortness of breath. Of significance she did recently have COVID-19 in February 2021. She has been experiencing fatigue since then. She was recently seen by PCP on 04/21 secondary to sinusitis and was treated with oral doxycycline and completed course. In ED patient was mildly hypertensive at 161/91. She did take her oral amlodipine today. Her CBC and CMP was generally unremarkable. Her EKG revealed ventricular rate of 99 bpm, RBBB without ST or T wave change. Her initial troponin which was drawn at 430 was negative which was reassuring. Her chest x-ray was negative for acute abnormality. She did receive Nitropaste in ED which did not really alleviate symptoms as well as aspirin. Allergies Allergy/AdvReac Type Severity Reaction Status Date / Time Sulfa (Sulfonamide Allergy Severe HIVES Verified 05/07/21 17:09 Antibiotics) Home Medications Medication Instructions Recorded Confirmed Type Mag/Calcium/Zinc 1 tab PO DAILY 05/07/21 05/07/21 History amlodipine 10 mg tablet 10 mg PO DAILY 05/07/21 05/07/21 History buspirone 10 mg tablet 10 mg PO TID 05/07/21 05/07/21 History cholecalciferol (vitamin D3) 25 50 mcg PO DAILY 05/07/21 05/07/21 History mcg (1,000 unit) tablet (Vitamin D3) famotidine 10 mg tablet (Pepcid AC) 10 mg PO DAILY PRN 05/07/21 05/07/21 History lorazepam 0.5 mg tablet 0.5 mg PO TID PRN 05/07/21 05/07/21 History meloxicam 15 mg tablet 15 mg PO QAM 05/07/21 05/07/21 History multivitamin 1 tab PO DAILY 05/07/21 05/07/21 History phenylephrine 5 1 cap PO BID PRN 05/07/21 05/07/21 History mg-dextromethorphan 10 mg-acetaminophen 325 mg capsule rizatriptan 5 mg tablet 5 mg PO DIRECTED PRN 05/07/21 05/07/21 History tramadol 50 mg tablet 50 mg PO Q6 PRN 05/07/21 05/07/21 History trazodone 50 mg tablet 50 mg PO HS 05/07/21 05/07/21 History venlafaxine 150 mg 150 mg PO DAILY 05/07/21 05/07/21 History capsule,extended release 24 hr vitamin B complex 1 tab PO DAILY 05/07/21 05/07/21 History Past Med/Surg History Medical History Anxiety Depression Hypertension Surgical History (Updated 05/07/21 @ 18:28 by Fernanda Monreal PA-C) History of shoulder surgery Family History Mother Pacemaker Social History (Updated 05/07/21 @ 18:29 by Fernanda Monreal PA-C) Smoking Status: Never smoker Hx Alcohol Use: Yes Alcohol type: wine Alcohol Intake Frequency: 4 or More x per/Week Alcohol Intake Frequency Comment: 3 glasses of wine a night, last drink last evening Hx Substance Use: No Preferred Language: [place]i Communication Ability: Effective marital status: Current Living Situation: Spouse Feels Safe at Home: Yes Review of Systems Review of Systems: All systems reviewed & are unremarkable except as noted in HPI & below Physical Exam Physical Exam: Constitutional: WD/WN, vitals as above, NAD, sitting up in bed, pleasant, conversing easily Head: Normocephalic, Atraumatic Eyes: PERRL, conjunctivae normal, anicteric sclerae ENMT: external ear and nose normal, oropharynx normal Neck: trachea midline, no thyromegaly normal visual inspection Respiratory: normal respiratory effort, lungs clear to auscultation, no wheeze, rales, rhonchi. Normal insp/exp effort, no accessory muscle use Cardiovascular: RRR, no murmur, no edema Vessels: no JVD or carotid bruit Chest: normal inspection of chest , chest pain not reproducible Abdomen: Mild epigastric discomfort with palpation, normal bowel sounds, soft, nontender, no hepatosplenomegaly Musculoskeletal: no cyanosis or clubbing, extremities motor strength 5/5 Skin: no rashes, warm and dry normal turgor Neurologic: PERRL, EOMI, accommodation nl, no face palsy, no dysarthria CN's II-XI intact bilaterally and moves all extremities Psychiatric: A+Ox3, euthymic affect Lymphatic: no cervical or axillary lymphadenopathy : deferred Results & Data Results & Data ([facility]) Vital Signs (Past 12 Hours) Vital Signs Temp Pulse Pulse Resp BP Pulse Ox 05/07/21 17:00 88 14 99 05/07/21 16:36 66 14 98 05/07/21 16:08 36.4 C L 103 H 18 161/91 H 100 Diagnostic Findings Chest X-Ray 05/07/21 16:24 XR chest 1V portable CLINICAL HISTORY: Atypical chest pain TECHNIQUE: Single frontal radiograph of the chest was obtained. Comparison: Comparison is made to chest one view 05/01/2017 FINDINGS: No lines and tubes are seen. The cardiomediastinal silhouette is normal. The lungs are clear. No evidence of pleural effusion or pneumothorax. IMPRESSION: No acute chest disease. ACT 112: Negative or not required by law. Electronically signed by: Navid Rivas M.D. 05/07/2021 5:02 PM Medications Administered Medication List Discontinued Medications Al Hydrox/Mg Hydrox/Simethicone (Aluminum/Magnesium Susp 30 Ml Udc) 30 ml PO NOW STA Stop: 05/07/21 18:16 Last Admin: 05/07/21 18:25 Dose: 30 ml Documented by: [id number] Aspirin (Aspirin 81 Mg Chew) 324 mg PO NOW STA Stop: 05/07/21 17:33 Last Admin: 05/07/21 18:25 Dose: 324 mg Documented by: [id number] Famotidine (Pepcid 20mg Iv Push) 20 mg in 5 mls @ 2.5 mls/min IV NOW STA Stop: 05/07/21 18:16 Last Admin: 05/07/21 18:25 Dose: 2.5 mls/min Documented by: [id number] Nitroglycerin (Nitroglycerin 2% Ointment 30gm Tube) 1 inch EXT NOW ONE Stop: 05/07/21 16:55 Last Admin: 05/07/21 16:59 Dose: 1 inch Documented by: [id number] ECG Rate (beats per minute): 99 Rhythm: normal sinus COVID-19 Results Results COVID-19 Adm Lab Results: RBC 4.43 M/uL (4.2-5.4) 05/07/21 WBC 8.82 K/uL (4.8-10.8) 05/07/21 Hgb 13.9 g/dL (12.0-16.0) 05/07/21 Hct 42.2 % (37-47) 05/07/21 Plt Count 329 K/uL (130-400) 05/07/21 Neutrophils (%) (Auto) 57.7 % 05/07/21 Lymphocytes (%) (Auto) 22.7 % 05/07/21 Monocytes # (Auto) 1.44 K/uL (0.11-0.59) H 05/07/21 Eosinophils # (Auto) 0.26 K/uL (0-0.5) 05/07/21 Immature Granulocyte % (Auto) 0.1 % 05/07/21 Neutrophils # (Auto) 5.08 K/uL (1.4-6.5) 05/07/21 Lymphocytes # (Auto) 2.00 K/uL (1.2-3.4) 05/07/21 Monocytes # (Auto) 1.44 K/uL (0.11-0.59) H 05/07/21 Eosinophils # (Auto) 0.26 K/uL (0-0.5) 05/07/21 Basophils # (Auto) 0.03 K/uL (0-0.2) 05/07/21 Immature Granulocyte # (Auto) 0.01 K/uL (0.00-0.02) 05/07/21 Na 139 mmol/L (136-145) 05/07/21 K 3.8 mmol/L (3.5-5.1) 05/07/21 Cl 103 mmol/L (98-107) 05/07/21 CO2 29 mmol/L (21-32) 05/07/21 Anion Gap 7 (3-11) 05/07/21 BUN 25 mg/dl (6-23) H 05/07/21 Creatinine 0.89 mg/dl (0.6-1.2) 05/07/21 BUN/Creatinine Ratio 28.1 (10-20) H 05/07/21 Glucose Level 72 mg/dl (70-99(Fasting)) 05/07/21 Ca 9.3 mg/dl (8.5-10.1) 05/07/21 Total Bilirubin 0.4 mg/dl (0.2-1.0) 05/07/21 AST/SGOT 18 U/L (13-39) 05/07/21 ALT/SGPT 18 U/L (7-52) 05/07/21 Alkaline Phosphatase 75 U/L (34-104) 05/07/21 Total Protein 6.8 gm/dl (6.0-8.3) 05/07/21 Albumin 4.3 gm/dl (3.4-5.0) 05/07/21 Globulin 2.5 gm/dl (2.5-4.0) 05/07/21 Albumin/Globulin Ratio 1.7 (0.9-2) 05/07/21 Troponin I < 0.03 ng/ml (0-0.04) 05/07/21 D-Dimer < 190 ug/L FEU (0-500) 05/07/21 PTT 25.4 Seconds (21.0-31.0) 05/07/21 INR 1.0 (0.9-1.1) 05/07/21 SARS-CoV-2, RNA, NAAT NEGATIVE (NEGATIVE) 05/07/21 Chest X-Ray 05/07/21 Code Status & VTE Plan Code Status FULL CODE VTE Prophylaxis Plan VTE Prophylaxis will be ordered: Yes Supervising Physician Co-Signing Physician Notes I have seen and examined the patient and have discussed the case with the provider above. I agree with the assessment and plan as stated. 61 yo F with no history of heart disease presents with ongoing chest pain since this morning. It is described as a burning pain and is in the central chest region. She reports no improvement with Maalox or Pepcid this afternoon, but did feel an improvement from 7/10 pain down to 4/10 pain with nitroglycerin. Chest pain is continuous and made worse with exertion and squatting down/changing positions. She reports feeling generally ill over the past two weeks and notes stress at work that is driving her anxiety and depression to be uncontrolled. She is on Buspar and venlafaxine and compliant, but doesn't seek counseling. She drinks 3 glasses of wine daily to cope with stress, michel when her is away for work. 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 Physical exam reveals a very anxious, almost shaky female who is mentating clearly. Cardiac exam reveals S1/2 with no murmurs, gallops or rubs, and she has no peripheral edema. Lungs are clear to auscultation throughout. She has some TTP of her right anterior chest wall that doesn't reproduce the pain that brought her in tonight, and reports a h/o costochondritis that "is not flared because I can tell when it is flared up." CBC is normal except differential reveals elevated monocytes. CMP is WNL and troponin is normal. EKG is non ischemic and her blood pressure is 161/91. Lipase is 32. CXR reveals no acute chest disease. Chest pain appears to be moreso related to an uncontrolled acid reflux issue possibly driven by stress. Anxiety is very uncontrolled and she drinks too much alcohol. She was educated that this is too much drinking to do daily. She reassured me that she "isn't going to the bar" but does consume roughly three glasses of wine per day. She states "I can't meditate" and states that "when it's warm I liek to walk in the [place], but since it's cold I can't." Initial troponin and EKG are negative--will trend overnight. Cont nitropaste as this improves her pain and her BP is elevated. Will try some morphine now. Placed her on protonix 40mg BID and will cont with GI cocktail PRN overnight. Cardiology evaluation with stress test in am. NPO after midnight. Patient and her verbalized understanding of the plan. Ceci Dixon DO [facility]
[2021-05-07] MEDS ORDERED: MoRPHine SULFATE 2 MG/ML CARP IV STA (19:39)
[2021-05-07] MEDS ORDERED: NITROGLYCERIN SL 0.4 MG/TAB TAB SL PRN (21:04)
[2021-05-07] MEDS ORDERED: ACETAMINOPHEN 325 MG TAB PO PRN (21:04)
[2021-05-07] MEDS ORDERED: FAMOTIDINE 10 MG TABLET PO PRN (21:04)
[2021-05-07] MEDS ORDERED: ALUMINUM/MAGNESIUM SUSP 30 ML UDC PO PRN (21:04)
[2021-05-07] MEDS ORDERED: traZODone HCL 50 MG TAB PO SCH (21:04)
[2021-05-07] MEDS ORDERED: ENOXAPARIN INJ 40 MG/0.4 ML SYR SQ SCH (21:04)
[2021-05-07] MEDS ORDERED: MoRPHine SULFATE 2 MG/ML CARP IV PRN (21:04)
[2021-05-07] MEDS ORDERED: MAGNESIUM HYDROXIDE SUSP 30 ML UDC PO PRN (21:04)
[2021-05-07] MEDS ORDERED: LORazepam 0.5 MG TAB PO PRN (21:04)
[2021-05-07] MEDS ORDERED: ONDANSETRON INJ 2 MG/ML 2 ML VIAL IV PRN (21:04)
[2021-05-07] MEDS ORDERED: ALUMINUM/MAGNESIUM SUSP 72 ML, LIDOCAINE VISCOUS 2% SOLN 24 ML, BARCODE IDENTIFIER 1 EA PO PRN (21:04)
[2021-05-07] MEDS ORDERED: POLYETHYLENE (MIRALAX) 17 GM PACK PO PRN (21:04)
[2021-05-07] MEDS: busPIRone 5 MG TAB PO SCH (22:20)
[2021-05-07] MEDS: PANTOprazole 40 MG TAB PO SCH (22:20)
[2021-05-07] MEDS: NITROGLYCERIN 2% OINTMENT 30GM TUBE EXT SCH (23:31)
[2021-05-08 05:58] LABS: Hematocrit (blood only) 39.4 % (37-47); Hemoglobin 12.8 g/dL (12.0-16.0); Mean Corpuscular Hemoglobin 30.8 pg (25-34); Mean Corpuscular Hgb Conc 32.5 g/dL (32-36); Mean Corpuscular Volume 94.7 fL (80-100); Mean Platelet Volume 9.3 fL (7.4-10.4); Platelet Count 300 K/uL (130-400); RDW Coefficient of Variation 12.7 % (11.5-14.5); Red Blood Count 4.16 M/uL (4.2-5.4); White Blood Count 5.11 K/uL (4.8-10.8)
[2021-05-08 06:08] LABS: Partial Thromboplastin Ratio 1.1; Partial Thromboplastin Time 29.7 Seconds (21.0-31.0)
[2021-05-08 06:24] LABS: BUN Creatinine Ratio 24.1 (10-20); Calcium 8.8 mg/dl (8.5-10.1); Chol HDL Ratio 2.5 (0-5); Creatinine Clr Calc Pharmacy 68.1 ml/min; Est GFR (African American) 88.8 ml/min; Est GFR (Non-African American) 76.6 ml/min; Potassium 4.1 mmol/L (3.5-5.1)
[2021-05-08] MEDS: NITROGLYCERIN 2% OINTMENT 30GM TUBE EXT SCH (06:33)
[2021-05-08 07:45] LABS: Estimated Average Glucose 105 mg/dl; Hemoglobin A1C 5.3 % (4.5-5.6)
--- NOTE | 2021-05-08 08:35 | Cardiology Consultation ---
Date of Consultation May 08, 2021 Assessment & Plan (1) Chest pain: (2) Hypertension: (3) Anxiety: Patient admitted for chest pain, persistent over the last 24 hours Improved symptoms this morning after GI cocktail overnight and nitro patch Remove nitro patch due to hypotension No acute EKG changes despite ongoing symptoms since admission. Serial cardiac enzymes have been unremarkable. Currently chest pain free. Her echo this morning revealed normal LV function without significant valvular disease. No wall motion abnormalities. Recommend proceeding with exercise stress echo this morning to evaluate and r/o inducible ischemia. She reports the ability to ambulate on a treadmill without issues. Further recommendations pending results of exercise stress echo, to be completed with Dr. Sidhu. If stress testing is unremarkable, its a good possibility her symptoms were co nsistent with GERD and may benefit form PPI on discharge. Supervising Physician Attestation: I have personally performed a history and physical examination on the patient. I agree with the physician assistant tennis coach's findings and plan as documented with the following additions. Subjective: Patient seen prior to, during, and after exercise stress echocardiogram. Chest discomfort had resolved at baseline prior to starting the stress test. Exam: Regular rhythm, no murmurs, no edema Neurologic deficits Data: Troponin I negative x4 EKG reveals normal sinus rhythm without ST changes. LDL cholesterol 74 mg/dL Assessment : Chest discomfort, atypical for angina, questionable GERD Nonischemic response to stress echocardiography Comment: Patient exercised into stage III of a standard Freddie protocol. At rest no symptoms noted, she did have mild "burning "was nonlimiting, during exercise, which was not characteristic of angina. EKG response to exercise was normal. The resting left ventricular wall motion was normal with normal post exercise wall motion and an appropriate increase in the overall left ventricular systolic function. Plan: Stress test results are reassuring, under predictive of the low risk of underlying hemodynamically significant coronary heart disease. Advance diet, and would consider discharging the patient on a proton pump inhibitor. Recommend follow-up with primary care, and can see cardiology on an as-needed basis should future concerns arise. Cameron Sidhu, DO History of Present Illness Reason for Consultation: Chest pain Requesting Physician: Dr. Dixon Attending Physician: Dr. Sidhu History of Present Illness Patient is a 61 year old female who was admitted to [facility] yesterday with compla ints of chest pain. History includes anxiety, depression, hypertension, reported history of costochondritis. No prior cardiac history. She underwent exercise stress echo in 2018 for chest pain which was negative for inducible ischemia having exercised for just over 10 minutes with normal LVEF and no significant valvular disease, LVEF 55-59%. She reported yesterday morning she began to experience intermittent chest burning sensation, radiating to her throat. Started as sharp/stabbing pains, worse with bending over or squatting down to pick something up off the floor. She also reported right arm "ache" during this time. She took one of her husbands SL nitro pills while at home, and this seemed to ease her symptoms, but 10 minutes later, symptoms returned. She felt SOB with the chest "burning". No diahporesis, nausea, vomiting. Symptoms did not seem to worsen with exertion. She admits to intermittent chest pain over the last 6 months, comes and goes randomly, without relation to exertion. SHe reports she is physically active and walks for exercise. No reproducible symptoms with exercise to her recollection, although she admits to "ignoring" the discomfort. She admits to a great deal of stress/anxiety and not well controlled. has health issues and needs upcoming vascular surgery. On arrival to ER, BP was elevated. EKG was without acute changes. Troponin has b een negative despite ongoing symptoms. She was treated with SL nitro without relief. She was also treated with GI cocktail overnight and nitro patch. She developed mild hypotension with nitro patch. At time of consult, patient's symptoms have subsided. Currently feeling ok, just tired due to lack of sleep. She thinks nitro patch was removed earlier. HR and BP has improved. She denies SOB, diaphoresis, nausea, chest pain currently. No palpitations, dizziness, syncope or near syncope. Allergies Allergy/AdvReac Type Severity Reaction Status Date / Time Sulfa (Sulfonamide Allergy Severe HIVES Verified 05/07/21 17:09 Antibiotics) Home Medications Medication Instructions Recorded Confirmed Type Mag/Calcium/Zinc 1 tab PO DAILY 05/07/21 05/07/21 History amlodipine 10 mg tablet 10 mg PO DAILY 05/07/21 05/07/21 History buspirone 10 mg tablet 10 mg PO TID 05/07/21 05/07/21 History cholecalciferol (vitamin D3) 25 50 mcg PO DAILY 05/07/21 05/07/21 History mcg (1,000 unit) tablet (Vitamin D3) famotidine 10 mg tablet (Pepcid AC) 10 mg PO DAILY PRN 05/07/21 05/07/21 History lorazepam 0.5 mg tablet 0.5 mg PO TID PRN 05/07/21 05/07/21 History meloxicam 15 mg tablet 15 mg PO QAM 05/07/21 05/07/21 History multivitamin 1 tab PO DAILY 05/07/21 05/07/21 History phenylephrine 5 1 cap PO BID PRN 05/07/21 05/07/21 History mg-dextromethorphan 10 mg-acetaminophen 325 mg capsule rizatriptan 5 mg tablet 5 mg PO DIRECTED PRN 05/07/21 05/07/21 History tramadol 50 mg tablet 50 mg PO Q6 PRN 05/07/21 05/07/21 History trazodone 50 mg tablet 50 mg PO HS 05/07/21 05/07/21 History venlafaxine 150 mg 150 mg PO DAILY 05/07/21 05/07/21 History capsule,extended release 24 hr vitamin B complex 1 tab PO DAILY 05/07/21 05/07/21 History Patient History Medical History Anxiety Depression Hypertension Surgical History (Updated 05/07/21 @ 18:28 by Fernanda Monreal PA-C) History of shoulder surgery Family History Mother Pacemaker Social History (Updated 05/07/21 @ 18:29 by Fernanda Monreal PA-C) Smoking Status: Never smoker Hx Alcohol Use: Yes Alcohol type: wine Alcohol Intake Frequency: 4 or More x per/Week Alcohol Intake Frequency Comment: 3 glasses of wine a night, last drink last evening Hx Substance Use: No Preferred Language: Divehi Communication Ability: Effective marital status: Current Living Situation: Spouse Feels Safe at Home: Yes Review of Systems Review of Systems: All systems reviewed & are unremarkable except as noted in HPI & below Physical Exam Constitutional: WD/WN, vitals as above well developed and well nourished Eyes: PERRL, conjunctivae normal, anicteric sclerae ENMT: external ear and nose normal, oropharynx normal Neck: trachea midline, no thyromegaly Respiratory: normal respiratory effort, lungs clear to auscultation Cardiovascular: RRR, no murmur, no edema Gastrointestinal (Abdomen): normal bowel sounds, soft, nontender, no hepat osplenomegaly Skin: no rashes, warm and dry Neurologic: PERRL, EOMI, accommodation nl, no face palsy, no dysarthria Psychiatric: A+Ox3, euthymic affect Results & Data ([facility]) Vital Signs (Past 12 Hours) Vital Signs Pulse Pulse Resp BP BP Pulse Ox Pulse Ox 05/08/21 04:55 80 14 98/60 L 95 05/08/21 04:44 75 18 124/76 98 05/08/21 01:41 96 05/08/21 01:30 78 14 92/55 L 97 05/07/21 23:30 87 14 93/52 L 96 05/07/21 21:58 88 14 130/83 97 05/07/21 21:14 91 H 14 148/95 H 98 05/07/21 21:04 95 H 14 132/88 96 96 05/07/21 21:00 90 14 148/95 H 98 Laboratory Results 05/08/21 05/08/21 05/08/21 Range/Units 05:42 05:42 05:42 WBC (4.8-10.8) K/uL RBC (4.2-5.4) M/uL Hgb (12.0-16.0) g/dL Hct (37-47) % MCV (80-100) fL MCH (25-34) pg MCHC (32-36) g/dL RDW Std Deviation (36.4-46.3) fL RDW Coeff of Lisa (11.5-14.5) % Plt Count (130-400) K/uL MPV (7.4-10.4) fL Immature Gran % (Auto) % Neut % (Auto) % Lymph % (Auto) % Nicholas % (Auto) % Eos % (Auto) % Baso % (Auto) % Neut # (Auto) (1.4-6.5) K/uL Lymph # (Auto) (1.2-3.4) K/uL Nicholas # (Auto) (0.11-0.59) K/uL Eos # (Auto) (0-0.5) K/uL Baso # (Auto) (0-0.2) K/uL Immature Gran # (Auto) (0.00-0.02) K/uL PT (9.0-12.0) Seconds INR (0.9-1.1) APTT 29.7 (21.0-31.0) Seconds PTT Ratio 1.1 D-Dimer (0-500) ug/L FEU Sodium (136-145) mmol/L Potassium (3.5-5.1) mmol/L Chloride (98-107) mmol/L Carbon Dioxide (21-32) mmol/L Anion Gap (3-11) BUN (6-23) mg/dl Creatinine (0.6-1.2) mg/dl Est Cr Clr Drug Dosing ml/min Est GFR ( Amer) ml/min Est GFR (Non-Af Amer) ml/min BUN/Creatinine Ratio (10-20) Glucose (70-99(Fasting)) mg/dl Estimat Average Glucose mg/dl Hemoglobin A1c (4.5-5.6) % Calcium (8.5-10.1) mg/dl Total Bilirubin (0.2-1.0) mg/dl AST (13-39) U/L ALT (7-52) U/L Alkaline Phosphatase (34-104) U/L Troponin I < 0.03 (0-0.04) ng/ml Total Protein (6.0-8.3) gm/dl Albumin (3.4-5.0) gm/dl Globulin (2.5-4.0) gm/dl Albumin/Globulin Ratio (0.9-2) Triglycerides (0-150) mg/dl Cholesterol (0-200) mg/dl LDL Cholesterol, Calc mg/dl VLDL Cholesterol, Calc (0-30) mg/dl HDL Cholesterol mg/dl Cholesterol/HDL Ratio (0-5) Lipase (11-82) U/L TSH 2.306 (0.300-4.500) uIu/ml SARS-CoV-2, RNA, NAAT (NEGATIVE) 05/08/21 05/08/21 05/08/21 Range/Units 05:42 05:42 05:42 WBC 5.11 (4.8-10.8) K/uL RBC 4.16 L (4.2-5.4) M/uL Hgb 12.8 (12.0-16.0) g/dL Hct 39.4 (37-47) % MCV 94.7 (80-100) fL MCH 30.8 (25-34) pg MCHC 32.5 (32-36) g/dL RDW Std Deviation 44.0 (36.4-46.3) fL RDW Coeff of Lisa 12.7 (11.5-14.5) % Plt Count 300 (130-400) K/uL MPV 9.3 (7.4-10.4) fL Immature Gran % (Auto) % Neut % (Auto) % Lymph % (Auto) % Nicholas % (Auto) % Eos % (Auto) % Baso % (Auto) % Neut # (Auto) (1.4-6.5) K/uL Lymph # (Auto) (1.2-3.4) K/uL Nicholas # (Auto) (0.11-0.59) K/uL Eos # (Auto) (0-0.5) K/uL Baso # (Auto) (0-0.2) K/uL Immature Gran # (Auto) (0.00-0.02) K/uL PT (9.0-12.0) Seconds INR (0.9-1.1) APTT (21.0-31.0) Seconds PTT Ratio D-Dimer (0-500) ug/L FEU Sodium 139 (136-145) mmol/L Potassium 4.1 (3.5-5.1) mmol/L Chloride 105 (98-107) mmol/L Carbon Dioxide 30 (21-32) mmol/L Anion Gap 4 (3-11) BUN 20 (6-23) mg/dl Creatinine 0.83 (0.6-1.2) mg/dl Est Cr Clr Drug Dosing 68.1 ml/min Est GFR ( Amer) 88.8 ml/min Est GFR (Non-Af Amer) 76.6 ml/min BUN/Creatinine Ratio 24.1 H (10-20) Glucose 100 H (70-99(Fasting)) mg/dl Estimat Average Glucose 105 mg/dl Hemoglobin A1c 5.3 (4.5-5.6) % Calcium 8.8 (8.5-10.1) mg/dl Total Bilirubin (0.2-1.0) mg/dl AST (13-39) U/L ALT (7-52) U/L Alkaline Phosphatase (34-104) U/L Troponin I (0-0.04) ng/ml Total Protein (6.0-8.3) gm/dl Albumin (3.4-5.0) gm/dl Globulin (2.5-4.0) gm/dl Albumin/Globulin Ratio (0.9-2) Triglycerides 164 H (0-150) mg/dl Cholesterol 177 (0-200) mg/dl LDL Cholesterol, Calc 74 mg/dl VLDL Cholesterol, Calc 33 H (0-30) mg/dl HDL Cholesterol 70 mg/dl Cholesterol/HDL Ratio 2.5 (0-5) Lipase (11-82) U/L TSH (0.300-4.500) uIu/ml SARS-CoV-2, RNA, NAAT (NEGATIVE) 05/08/21 05/07/21 05/07/21 Range/Units 04:15 22:04 17:58 WBC (4.8-10.8) K/uL RBC (4.2-5.4) M/uL Hgb (12.0-16.0) g/dL Hct (37-47) % MCV (80-100) fL MCH (25-34) pg MCHC (32-36) g/dL RDW Std Deviation (36.4-46.3) fL RDW Coeff of Lisa (11.5-14.5) % Plt Count (130-400) K/uL MPV (7.4-10.4) fL Immature Gran % (Auto) % Neut % (Auto) % Lymph % (Auto) % Nicholas % (Auto) % Eos % (Auto) % Baso % (Auto) % Neut # (Auto) (1.4-6.5) K/uL Lymph # (Auto) (1.2-3.4) K/uL Nicholas # (Auto) (0.11-0.59) K/uL Eos # (Auto) (0-0.5) K/uL Baso # (Auto) (0-0.2) K/uL Immature Gran # (Auto) (0.00-0.02) K/uL PT (9.0-12.0) Seconds INR (0.9-1.1) APTT (21.0-31.0) Seconds PTT Ratio D-Dimer (0-500) ug/L FEU Sodium (136-145) mmol/L Potassium (3.5-5.1) mmol/L Chloride (98-107) mmol/L Carbon Dioxide (21-32) mmol/L Anion Gap (3-11) BUN (6-23) mg/dl Creatinine (0.6-1.2) mg/dl Est Cr Clr Drug Dosing ml/min Est GFR ( Amer) ml/min Est GFR (Non-Af Amer) ml/min BUN/Creatinine Ratio (10-20) Glucose (70-99(Fasting)) mg/dl Estimat Average Glucose mg/dl Hemoglobin A1c (4.5-5.6) % Calcium (8.5-10.1) mg/dl Total Bilirubin (0.2-1.0) mg/dl AST (13-39) U/L ALT (7-52) U/L Alkaline Phosphatase (34-104) U/L Troponin I < 0.03 < 0.03 (0-0.04) ng/ml Total Protein (6.0-8.3) gm/dl Albumin (3.4-5.0) gm/dl Globulin (2.5-4.0) gm/dl Albumin/Globulin Ratio (0.9-2) Triglycerides (0-150) mg/dl Cholesterol (0-200) mg/dl LDL Cholesterol, Calc mg/dl VLDL Cholesterol, Calc (0-30) mg/dl HDL Cholesterol mg/dl Cholesterol/HDL Ratio (0-5) Lipase (11-82) U/L TSH (0.300-4.500) uIu/ml SARS-CoV-2, RNA, NAAT NEGATIVE (NEGATIVE) 05/07/21 05/07/21 05/07/21 Range/Units 16:29 16:29 16:29 WBC 8.82 (4.8-10.8) K/uL RBC 4.43 (4.2-5.4) M/uL Hgb 13.9 (12.0-16.0) g/dL Hct 42.2 (37-47) % MCV 95.3 (80-100) fL MCH 31.4 (25-34) pg MCHC 32.9 (32-36) g/dL RDW Std Deviation 43.9 (36.4-46.3) fL RDW Coeff of Lisa 12.6 (11.5-14.5) % Plt Count 329 (130-400) K/uL MPV 9.5 (7.4-10.4) fL Immature Gran % (Auto) 0.1 % Neut % (Auto) 57.7 % Lymph % (Auto) 22.7 % Nicholas % (Auto) 16.3 % Eos % (Auto) 2.9 % Baso % (Auto) 0.3 % Neut # (Auto) 5.08 (1.4-6.5) K/uL Lymph # (Auto) 2.00 (1.2-3.4) K/uL Nicholas # (Auto) 1.44 H (0.11-0.59) K/uL Eos # (Auto) 0.26 (0-0.5) K/uL Baso # (Auto) 0.03 (0-0.2) K/uL Immature Gran # (Auto) 0.01 (0.00-0.02) K/uL PT 10.1 (9.0-12.0) Seconds INR 1.0 (0.9-1.1) APTT 25.4 (21.0-31.0) Seconds PTT Ratio 1.0 D-Dimer < 190 (0-500) ug/L FEU Sodium 139 (136-145) mmol/L Potassium 3.8 (3.5-5.1) mmol/L Chloride 103 (98-107) mmol/L Carbon Dioxide 29 (21-32) mmol/L Anion Gap 7 (3-11) BUN 25 H (6-23) mg/dl Creatinine 0.89 (0.6-1.2) mg/dl Est Cr Clr Drug Dosing 63.5 ml/min Est GFR ( Amer) 81.6 ml/min Est GFR (Non-Af Amer) 70.4 ml/min BUN/Creatinine Ratio 28.1 H (10-20) Glucose 72 (70-99(Fasting)) mg/dl Estimat Average Glucose mg/dl Hemoglobin A1c (4.5-5.6) % Calcium 9.3 (8.5-10.1) mg/dl Total Bilirubin 0.4 (0.2-1.0) mg/dl AST 18 (13-39) U/L ALT 18 (7-52) U/L Alkaline Phosphatase 75 (34-104) U/L Troponin I < 0.03 (0-0.04) ng/ml Total Protein 6.8 (6.0-8.3) gm/dl Albumin 4.3 (3.4-5.0) gm/dl Globulin 2.5 (2.5-4.0) gm/dl Albumin/Globulin Ratio 1.7 (0.9-2) Triglycerides (0-150) mg/dl Cholesterol (0-200) mg/dl LDL Cholesterol, Calc mg/dl VLDL Cholesterol, Calc (0-30) mg/dl HDL Cholesterol mg/dl Cholesterol/HDL Ratio (0-5) Lipase 32 (11-82) U/L TSH (0.300-4.500) uIu/ml SARS-CoV-2, RNA, NAAT (NEGATIVE) Diagnostic Findings Telemetry reviewed- NSR, rare ectopy. No concerning arrhythmias Echo results reviewed from today: There is normal LV wall thickness No regional wall motion abnormalities are noted. LVEF 55-60% Grade I diastolic dysfunction. No significant valvular disease. EKG reviewed from admission NSR, left atrial enlargement. Poor R wave progression No acute ST/T wave changes Repeat EKG this morning 05/08/21: NSR, LAE No acute changes/finding chest xray reviewed from admission: IMPRESSION: No acute chest disease. Medications Administered Current Inpatient Medications Acetaminophen (Acetaminophen 325 Mg Tab) 650 mg PO Q4H PRN PRN Reason: Pain or Fever Stop: 06/06/21 21:03 Al Hydrox/Mg Hydrox/Simethicone (Aluminum/Magnesium Susp 30 Ml Udc) 15 ml PO Q4H PRN PRN Reason: Dyspepsia Stop: 06/06/21 21:03 Amlodipine Besylate (Amlodipine Besylate 5 Mg Tab) 10 mg PO DAILY ADARSH Stop: 06/07/21 08:59 Buspirone HCl (Buspirone 5 Mg Tab) 10 mg PO TID ADARSH Stop: 06/06/21 21:03 Last Admin: 05/07/21 22:20 Dose: 10 mg Documented by: Al Hydrox/Mg Hydrox/Simethicone 72 ml/ Lidocaine HCl 24 ml/ BARCODE IDENTIFIER 1 ea 0 ml PO Q8H PRN PRN Reason: chest pain/heart burn Stop: 06/06/21 21:03 Enoxaparin Sodium (Enoxaparin Inj 40 Mg/0.4 Ml Syr) 40 mg SQ HS [facility] Stop: 06/06/21 21:03 Last Admin: 05/07/21 22:20 Dose: 40 mg Documented by: Famotidine (Famotidine 10 Mg Tablet) 10 mg PO DAILY PRN PRN Reason: Acid Reflux Stop: 06/06/21 21:03 Lorazepam (Lorazepam 0.5 Mg Tab) 0.5 mg PO TID PRN PRN Reason: Anxiety Stop: 06/06/21 21:03 Magnesium Hydroxide (Magnesium Hydroxide Susp 30 Ml Udc) 30 ml PO Q12H PRN PRN Reason: Constipation Stop: 06/06/21 21:03 Meloxicam (Meloxicam 7.5 Mg Tab) 15 mg PO QAM [facility] Stop: 06/07/21 08:59 Morphine Sulfate (Morphine Sulfate 2 Mg/Ml Carp) 2 mg IV Q4H PRN PRN Reason: Chest Pain Stop: 05/21/21 21:03 Multivitamins (Multivitamin Tab) 1 tab PO DAILY [facility] Stop: 06/07/21 08:59 Nitroglycerin (Nitroglycerin Sl 0.4 Mg/Tab Tab) 0.4 mg SL UD PRN PRN Reason: Chest Pain Stop: 06/06/21 21:03 Last Admin: 05/08/21 04:47 Dose: 0.4 mg Documented by: Nitroglycerin (Nitroglycerin 2% Ointment 30gm Tube) 1 inch EXT Q6 ADARSH Stop: 06/07/21 00:00 Last Admin: 05/08/21 06:33 Dose: Not Given Documented by: Ondansetron HCl (Ondansetron Inj 2 Mg/Ml 2 Ml Vial) 4 mg IV Q6H PRN PRN Reason: Nausea Stop: 06/06/21 21:03 Pantoprazole Sodium (Pantoprazole 40 Mg Tab) 40 mg PO BID [facility] Stop: 06/06/21 20:59 Last Admin: 05/07/21 22:20 Dose: 40 mg Documented by: Polyethylene Glycol (Polyethylene (Miralax) 17 Gm Pack) 17 gm PO DAILY PRN PRN Reason: Constipation Stop: 06/06/21 21:03 Trazodone HCl (Trazodone Hcl 50 Mg Tab) 50 mg PO ADARSH Stop: 06/06/21 21:03 Last Admin: 05/07/21 22:21 Dose: 50 mg Documented by: Venlafaxine HCl (Venlafaxine Hcl Xr 150 Mg Capxr) 150 mg PO DAILY ADARSH Stop: 06/07/21 08:59 Vitamin B Complex (Vitamin B Complex Tab) 1 tab PO DAILY ADARSH Stop: 06/07/21 08:59 Vitamin D (Cholecalciferol 1,000 Units 25 Mcg Tab) 2,000 units PO DAILY ADARSH Stop: 06/07/21 08:59
[2021-05-08] MEDS ORDERED: CHOLECALCIFEROL 1,000 UNITS 25 MCG TAB PO SCH (09:00)
[2021-05-08] MEDS ORDERED: MULTIVITAMIN TAB PO SCH (09:00)
[2021-05-08] MEDS ORDERED: amLODIPine BESYLATE 5 MG TAB PO SCH (09:00)
[2021-05-08] MEDS ORDERED: VITAMIN B COMPLEX TAB PO SCH (09:00)
[2021-05-08] MEDS ORDERED: MELOXICAM 7.5 MG TAB PO SCH (09:00)
[2021-05-08] MEDS ORDERED: VENLAFAXINE HCL XR 150 MG CAPXR PO SCH (09:00)
[2021-05-08] MEDS: busPIRone 5 MG TAB PO SCH (09:10)
[2021-05-08] MEDS: PANTOprazole 40 MG TAB PO SCH (09:13)
--- NOTE | 2021-05-08 13:26 | Discharge Summary ---
Date of Service May 08, 2021 Admission HPI Per Admitting Provider This is a 61-year-old female who has significant past medical history of HTN, history of migraine, depression with anxiety, history of COVID-19 on 03/14 who presents to ED secondary to chest pain that started approximately 10:30 AM. She states she slept in today due to not having to go into work till later. When she woke at approximately 10:30 AM she notes that she had a burning sensation and pain in her substernal chest region. Pain initially was rated a 7 out of 10, radiated to her right shoulder down the right arm describing as an ache, was made worse with deep inspiration, "feels like I cannot get a deep breath," and made worse with squatting down. She was not able to reproduce the pain and was not made worse with movement. No recent injury or trauma. She denies prior history of CAD. She has never experienced in the past. She tried one of her 's nitro which alleviated the symptoms for approximately 10 minutes and then it returned. She denies prior history of indigestion or heartburn but states she takes famotidine as needed. She is unable to tell me what her last meal was last evening, but knows she ate pizza 2 nights ago. She denied any diaphoresis, nausea or shortness of breath. Of significance she did recently have COVID-19 in February 2021. She has been experiencing fatigue since then. She was recently seen by PCP on 04/21 secondary to sinusitis and was treated with oral doxycycline and completed course. In ED patient was mildly hypertensive at 161/91. She did take her oral amlodipine today. Her CBC and CMP was generally unremarkable. Her EKG revealed ventricular rate of 99 bpm, RBBB without ST or T wave change. Her initial troponin which was drawn at 430 was negative which was reassuring. Her chest x-ray was negative for acute abnormality. She did receive Nitropaste in ED which did not really alleviate symptoms as well as aspirin. Admission Exam Per Admitting Provider Constitutional: WD/WN, vitals as above, NAD, sitting up in bed, pleasant, conversing easily Head: Normocephalic, Atraumatic Eyes: PERRL, conjunctivae normal, anicteric sclerae ENMT: external ear and nose normal, oropharynx normal Neck: trachea midline, no thyromegaly normal visual inspection Respiratory: normal respiratory effort, lungs clear to auscultation, no wheeze, rales, rhonchi. Normal insp/exp effort, no accessory muscle use Cardiovascular: RRR, no murmur, no edema Vessels: no JVD or carotid bruit Chest: normal inspection of chest , chest pain not reproducible Abdomen: Mild epigastric discomfort with palpation, normal bowel sounds, soft, nontender, no hepatosplenomegaly Musculoskeletal: no cyanosis or clubbing, extremities motor strength 5/5 Skin: no rashes, warm and dry normal turgor Neurologic: PERRL, EOMI, accommodation nl, no face palsy, no dysarthria CN's II-XI intact bilaterally and moves all extremities Psychiatric: A+Ox3, euthymic affect Lymphatic: no cervical or axillary lymphadenopathy : deferred Principal Diagnosis Acute chest pain: Hypertension: Depression with anxiety Alcohol use History of COVID-19 02/2021 History of migraine Discharge Exam See below Discharge Data Allergies Allergy/AdvReac Type Severity Reaction Status Date / Time Sulfa (Sulfonamide Allergy Severe HIVES Verified 05/07/21 17:09 Antibiotics) Consultations 05/07/21 17:32 ED Decision to Admit Stat 05/07/21 21:04 Consult Cardiology Routine Ordered Studies Current Diagnoses Anxiety disorder, unspecified (05/07/21) Essential (primary) hypertension (05/07/21) Chest pain, unspecified (05/07/21) Allergies Sulfa (Sulfonamide Antibiotics) Allergy (Severe, Verified 05/07/21 17:09) HIVES Height/Weight/Isolation Height 5 ft 4 in Weight 67.6 kg Chemistry 05/07/21 05/08/21 16:29 05:42 Sodium 139 139 Potassium 3.8 4.1 Chloride 103 105 Carbon Dioxide 29 30 Anion Gap 7 4 BUN 25 H 20 Creatinine 0.89 0.83 Glucose 72 100 H Hospital Course (1) Acute chest pain: (2) Hypertension: This is a 61-year-old female who has significant past medical history of HTN, history of migraine, depression with anxiety, history of COVID-19 on 03/14 who presents to ED secondary to chest pain that started approximately 10:30 AM. Initial troponin unremarkable, which is reassuring given it was 6 hours after onset of chest pain. EKG without ST or T wave change. Echo and Stress test neg Chest pain does not appear reproducible so less likely MSK. Patient describes it as a substernal burning sensation and admits to taking Pepcid occasionally. Also drinks wine 3 glasses nightly, question if gastritis or GERD at play Chest pain Hypertension DC home on ppi Depression with anxiety states she has alot of stress at work Continue as needed lorazepam, BuSpar, Effexor and trazodone Alcohol use Patient drinks 3 glasses of wine nightly Monitor closely for withdrawal History of COVID-19 02/2021 Continues to complain of fatigue History of migraine Triptan as needed DVT prophylaxis: Lovenox Dispo: DC home Full code PCP: Leigh MARIA-No Headache, No Visual Changes, No Nausea, No Vomiting, No Fever, No Chills, No Neck Pain or Stiffness, No Chest Pain, No Palpitations, No SOB, No RAMÍREZ, No Cough, No Sputum, No Wheezing, No Abdominal Pain, No Diarrhea, No Hematemesis, No Hemoptysis, No Unexpected Weight Loss, No Flank pain, No Melena, No Hematochezia, No Frequency, No Urgency, No Burning, No Hematuria, No Rashes, No Diaphoresis. Appetite is Normal Physical Exam Gen-AAO x 3, NAD, Afebrile Head-NCAT, EOMI, PERRLA, Anicteric Sclera, No Posterior Pharyngeal Erythema Neck-Supple, No JVD, No Thyromegaly, No Masses, No LAD, No Bruits Lungs-Clear to Auscultation Bilaterally, No Rales, No Rhonchi, No Wheezing, No Crepitus Chest-No S4, +S1, +S2, No S3, No Murmurs, No Rubs, No Gallops, No Ectopy Abdomen-Soft, Bowel Sounds Present, Non Tender, Non Distended, No Hepatomegaly, No Splenomegaly, No Palpable Masses, No Rebound, No Rigidity, No Guarding Musculoskeletal-Full Range of Motion Bilaterally, No CVAT Extremities-No Cyanosis, No Clubbing, No Edema Nuero-Cranial Nerves II-XII grossly intact, Motor WNL, DTRs WNL, Strength WNL, Non Focal Psych-Normal Mood Total Time Total Time Spent Total Time Spent (In Minutes): 45 mins Total Time Includes: Examination of the Patient, Discharge Planning, Medication Reconciliation and Communication With Other Providers Discharge Plan Discharge Items Patient Disposition: Home - Self-Care Reason For Visit: CHEST PAIN Discharge Diagnosis: Acute chest pain: Hypertension: Depression with anxiety Alcohol use History of COVID-19 02/2021 History of migraine Condition on Discharge: Good Activity: Resume your previous activity Lifting: Gradually increase as tolerated Bathing: No limitations Sexual Activity: When tolerated Exercise/Sports: Gradually increase as tolerated Driving/Machine Use: No limitations Weightbearing: Full weightbearing Non-emergency contact: Primary Care Provider Call non-emergency contact if: you have any medication questions Follow-up/Referrals: Donato Abraham MD [Primary Care Provider] - (Date & Time 05/12/2021 10:00 AM Provider Donato Abraham MD Department [facility] ) Diet: Heart Healthy Addtl Attending Provider Instructions: none Pending Studies at Discharge: No Stand-Alone Forms: My [employer], Smoking Cessation Medications and DC Order Prescriptions: New nitroglycerin [Nitrostat] 0.4 mg Tablet, Sublingual 0.4 mg sublingual UD PRN (Reason: chest pain) Qty: 30 RF: 0 MAG-AL 200-200 mg/5 mL Suspension 15 ml PO Q4H PRN (Reason: dyspepsia) Qty: 300 RF: 0 pantoprazole 40 mg Tablet,Delayed Release (Dr/Ec) 40 mg PO BID Qty: 30 RF: 0 Continued trazodone 50 mg tablet 50 mg PO HS RF: 0 meloxicam 15 mg tablet 15 mg PO QAM RF: 0 venlafaxine 150 mg capsule,extended release 24hr 150 mg PO DAILY RF: 0 tramadol 50 mg tablet 50 mg PO Q6 PRN (Reason: Severe Pain (Scale Score 7-10)) RF: 0 lorazepam 0.5 mg tablet 0.5 mg PO TID PRN (Reason: Anxiety) RF: 0 amlodipine 10 mg tablet 10 mg PO DAILY RF: 0 buspirone 10 mg tablet 10 mg PO TID RF: 0 rizatriptan 5 mg tablet 5 mg PO DIRECTED PRN (Reason: Migraine Headache) RF: 0 multivitamin Tablet 1 tab PO DAILY RF: 0 vitamin B complex Tablet 1 tab PO DAILY RF: 0 cholecalciferol (vitamin D3) [Vitamin D3] 25 mcg (1,000 unit) Tablet 50 mcg PO DAILY RF: 0 Mag/Calcium/Zinc 1 tab PO DAILY RF: 0 Discontinued famotidine [Pepcid AC] 10 mg Tablet 10 mg PO DAILY PRN (Reason: Acid Reflux) RF: 0 Mucinex Fast-MaxSev Cold-Sinus 5-10-325 mg Capsule 1 cap PO BID PRN (Reason: Congestion) RF: 0 Discharge Orders: Discharge Order (Routine); Ordered 05/08/21 Ordered By: Curly Lynne Admission Data Admit Date/Time: 05/07/21 17:46 Attending Provider: Curly Lynne Admit Provider: Ceci Dixon Primary Care Provider: Donato Abraham Other Providers: Ceci Dixon ; Cameron Sidhu
--- NOTE | 2021-05-08 22:23 | Electrocardiogram Report ---
Test Reason : Blood Pressure : / mmHG Vent. Rate : 099 BPM Atrial Rate : 099 BPM P-R Int : 168 ms QRS Dur : 082 ms QT Int : 348 ms P-R-T Axes : 055 005 044 degrees QTc Int : 446 ms Poor data quality, interpretation may be adversely affected Normal sinus rhythm Possible Left atrial enlargement Cannot rule out Anterior infarct , age undetermined Abnormal ECG When compared with ECG of 02-MAY-2017 07:02, Questionable change in QRS axis Confirmed by Torin Ross ([id number]) on 05/08/2021 10:23:40 PM Referred By: REFERRED SELF Confirmed By:Torin Ross
--- NOTE | 2021-05-08 22:39 | Electrocardiogram Report ---
Test Reason : Blood Pressure : / mmHG Vent. Rate : 075 BPM Atrial Rate : 075 BPM P-R Int : 192 ms QRS Dur : 080 ms QT Int : 400 ms P-R-T Axes : 054 009 038 degrees QTc Int : 446 ms Normal sinus rhythm Normal ECG When compared with ECG of 07-MAY-2021 16:16, (unconfirmed) No significant change was found Confirmed by Torin Ross ([id number]) on 05/08/2021 10:38:32 PM Referred By: REFERRED SELF Confirmed By:Torin Ross
== END 2021-05-08 14:00 | disposition home or self-care (01) ==
LOC: EDINP 16:06 → ED 16:06 → SUATTDRO 17:46 → EDINP 21:14